=== PATIENT | male | born 1940 | race Caucasian/White ===

== ENCOUNTER 2017-04-22 14:17 | Inpatient (IN) | payer MEDICARE, OTHER ==
[~2017-04-22] VITALS: Ht 162.6 cm; Wt 59.0 kg
[~2017-04-22 14:17] MED LIST: ASPIR 8181 MG ORAL; COGENTIN1 MG ORAL; COLACE100 MG ORAL; DEPAKOTE ER250 MG ORAL; DULCOLAX10 MG RC; FERROUS SULFAT325 MG ORAL; FLEET ENEMA133 ML RECTAL; MILK OF MA400 MG/51 ORAL; MIRAPEX0.25 MG ORAL; MULTIVITAMINS1 EAC8 ORAL; MYLANTA30 M1 ORAL; NITROSTAT0.4 M1 SL; NORCO 5-325 TA1 EACH ORAL; OMEPRAZOLE20 M2 ORAL; PROTEINEX LIQU236 ML PO; SINEMET 25/1001 EA ORAL; TYLENOL EXTRA500 MG ORAL; TYLENOL325 MG ORAL
[2017-04-22] MEDS ORDERED: LEVAQUIN500 MG ORAL (14:24)
[2017-04-22] MEDS ORDERED: DIGOXIN125 MCG ORAL (14:32)
[2017-04-22 14:35] VITALS: BP 100/60
--- NOTE | 2017-04-22 14:40 | Emergency Room Report ---
History of Present Illness General Chief Complaint: General Complaint Source: Medical Record, EMS Present Illness HPI Patient presents emergency department today with acute GI bleeding. Patient has history anemia and has received blood physician the past. Patient's currently DO NOT RESUSCITATE. Patient has history of diabetes with right lower extremity DKA and left midfoot palpitations. Patient is unable to provide much history. [facility]. Patient primary care physician is Dr. Raad Sun. No other complaints are noted. Other than the weakness just bleeding patient's any of further evaluation. Symptoms noted to be severe per report. No other modifying factors. No other associated signs and symptoms. No other complaints were noted. Allergies: Coded Allergies: No Known Allergies (Unverified , 04/27/15) Patient History Past Medical History: HTN, other - anemia Past Surgical History: pacemaker Pertinent Family History: none Social History Narrative stays at a [facility] Reviewed Nursing Documentation: PMH: Agreed, PSxH: Agreed Nursing Documentation-PMH Hx Cardiac Problems: Yes - ANEMIA Hx Hypertension: Yes Hx Pacemaker: Yes Hx Asthma: No Hx Cancer: No Hx Cerebrovascular Accident: Yes Hx Parkinson's Disease: Yes Hx Speech Problem: Yes Hx Tremors: Yes Hx Weakness: Yes Review of Systems All Other Systems: limited - poor mental status Physical Exam Vital Signs Date Time Temp Pulse Resp B/P (MAP) Pulse Ox O2 Delivery O2 Flow Rate FiO2 04/22/17 14:09 97.4 70 16 100/60 98 Room Air 97.3 Sp02 EP Interpretation: reviewed, normal General Appearance: alert, moderate distress, cachetic, lethargic, thin Head: normocephalic, atraumatic Eyes: bilateral eye normal inspection ENT: normal ENT inspection, dry mucus membranes, other - pale Neck: normal inspection, supple, no bony tend Respiratory: normal inspection, lungs clear, normal breath sounds, no respiratory distress, no retraction Cardiovascular #1: regular rate, rhythm, no edema Gastrointestinal: soft, other - mild distention Rectal: blood streaked stool Genitourinary: other - normal male external genetilia Musculoskeletal: back normal, other - right BKA, left midfoot amputation Neurologic: alert, other - sleepy, weak, nonfocal Psychiatric: depressed affect Skin: no rash, other - pale Medical Decision Making Diagnostic Impression: Primary Impression: Anemia Additional Impression: Acute GI bleeding ER Course Patient presents emergency department today complaining of acute GI bleeding. Currently stays at a [facility]. And was noted have worsening weakness and GI bleeding. Physical exam shows evidence of GI bleeding. Laboratory workup shows anemia. Because of this acute GI bleeding a felt the patient require admission to the hospital. Case was discussed with patient's primary care physician Dr. Raad Sun. Patient will be admitted to telemetry for further treatment. Labs Test 04/22/17 15:00 04/22/17 15:48 04/22/17 15:50 White Blood Count 7.8 K/UL (4.8-10.8) Red Blood Count 4.66 M/UL (4.70-6.10) Hemoglobin 10.7 G/DL (14.2-18.0) Hematocrit 35.1 % (42.0-52.0) Mean Corpuscular Volume 75 FL (80-99) Mean Corpuscular Hemoglobin 23.0 PG (27.0-31.0) Mean Corpuscular Hemoglobin Concent 30.5 G/DL (32.0-36.0) Red Cell Distribution Width 29.4 % (11.6-14.8) Platelet Count 172 K/UL (150-450) Mean Platelet Volume 6.7 FL (6.5-10.1) Neutrophils (%) (Auto) 81.2 % (45.0-75.0) Lymphocytes (%) (Auto) 10.4 % (20.0-45.0) Monocytes (%) (Auto) 7.4 % (1.0-10.0) Eosinophils (%) (Auto) 0.4 % (0.0-3.0) Basophils (%) (Auto) 0.6 % (0.0-2.0) Sodium Level 137 MMOL/L (136-145) Potassium Level 4.4 MMOL/L (3.5-5.1) Chloride Level 102 MMOL/L (98-107) Carbon Dioxide Level 23 MMOL/L (21-32) Anion Gap 12 mmol/L (5-15) Blood Urea Nitrogen 17 mg/dL (7-18) Creatinine 1.1 MG/DL (0.55-1.30) Estimat Glomerular Filtration Rate mL/min (>60) Glucose Level 72 MG/DL (74-106) Calcium Level 8.2 MG/DL (8.5-10.1) Total Bilirubin 1.0 MG/DL (0.2-1.0) Aspartate Amino Transf (AST/SGOT) 290 U/L (15-37) Alanine Aminotransferase (ALT/SGPT) 19 U/L (12-78) Alkaline Phosphatase 597 U/L (46-116) Troponin I 0.000 ng/mL (0.000-0.056) Total Protein 6.5 G/DL (6.4-8.2) Albumin 1.9 G/DL (3.4-5.0) Globulin 4.6 g/dL Albumin/Globulin Ratio 0.4 (1.0-2.7) Lipase 41 U/L (73-393) Urine Color Darshana Urine Appearance Cloudy Urine pH 5 (4.5-8.0) Urine Specific [place] 1.025 (1.005-1.035) Urine Protein 2+ (NEGATIVE) Urine Glucose (UA) Negative (NEGATIVE) Urine Ketones 2+ (NEGATIVE) Urine Occult Blood 1+ (NEGATIVE) Urine Nitrite Negative (NEGATIVE) Urine Bilirubin 1+ (NEGATIVE) Urine Ictotest Positive Urine Urobilinogen 8 MG/DL (0.0-1.0) Urine Leukocyte Esterase 1+ (NEGATIVE) Urine RBC 0-2 /HPF (0 - 0) Urine WBC 2-4 /HPF (0 - 0) Urine Squamous Epithelial Cells Few /LPF (NONE/OCC) Urine Amorphous Sediment Many /LPF (NONE) Urine Bacteria Many /HPF (NONE) Prothrombin Time 14.0 SEC (9.30-11.50) Prothromb Time International Ratio 1.3 (0.9-1.1) Activated Partial Thromboplast Time 31 SEC (23-33) EKG Diagnostic Results Rate: normal Rhythm: NSR ST Segments: other - inverted t wave v1-v5 Rhythm Strip Diag. Results EP Interpretation: yes Rate: 70s Rhythm: NSR, no PVC's, no ectopy Last Vital Signs Date Time Temp Pulse Resp B/P (MAP) Pulse Ox O2 Delivery O2 Flow Rate FiO2 04/22/17 14:09 97.4 70 16 100/60 98 Room Air 97.3 Status: improved Disposition: ADMITTED INPATIENT Condition: Serious KEVIN DWYER M.D. Apr 22, 2017 14:40
[2017-04-22 15:21] LABS: BASOPHILS % (AUTO) 0.6 % (0.0-2.0); EOSINOPHILS % (AUTO) 0.4 % (0.0-3.0); HEMATOCRIT 35.1 % (42.0-52.0); HEMOGLOBIN 10.7 G/DL (14.2-18.0); LYMPHOCYTES % (AUTO) 10.4 % (20.0-45.0); MEAN CORPUSCULAR VOLUME 75 FL (80-99); MONOCYTES % (AUTO) 7.4 % (1.0-10.0); NEUTROPHILS % (AUTO) 81.2 % (45.0-75.0); PLATELET COUNT 172 K/UL (150-450); RED BLOOD COUNT 4.66 M/UL (4.70-6.10); RED CELL DISTRIBUTION WIDTH 29.4 % (11.6-14.8); WHITE BLOOD COUNT 7.8 K/UL (4.8-10.8)
--- NOTE | 2017-04-22 15:24 | Diagnostic Imaging Report ---
Indication: Cough Comparison: 07/02/2015 A single view chest radiograph was obtained. Findings: Right-sided pacemaker again noted. Heart size is normal. There is a calcified granuloma at the left lung base. Bones are osteopenic. IMPRESSION: No acute disease
[2017-04-22 15:32] LABS: ANION GAP 12 mmol/L (5-15); BLOOD UREA NITROGEN 17 mg/dL (7-18); CALCIUM 8.2 MG/DL (8.5-10.1); CARBON DIOXIDE 23 MMOL/L (21-32); CHLORIDE 102 MMOL/L (98-107); CREATININE 1.1 MG/DL (0.55-1.30); POTASSIUM 4.4 MMOL/L (3.5-5.1); SODIUM 137 MMOL/L (136-145)
[2017-04-22 15:43] LABS: ALANINE AMINOTRANSFERASE 19 U/L (12-78); ALBUMIN 1.9 G/DL (3.4-5.0); ALBUMIN/GLOBULIN RATIO 0.4 (1.0-2.7); ALKALINE PHOSPHATASE 597 U/L (46-116); ASPARTATE AMINO TRANSFERASE 290 U/L (15-37)
[2017-04-22 16:09] LABS: APPEARANCE,URINE CLOUDY; BILIRUBIN, URINE 1+ (NEGATIVE); GLUCOSE, URINE (UA) NEGATIVE (NEGATIVE); KETONES,URINE 2+ (NEGATIVE); LEUKOCYTE ESTERASE ,URINE 1+ (NEGATIVE); NITRITE,URINE NEGATIVE (NEGATIVE); PH,URINE 5 (4.5-8.0); PROTEIN,URINE 2+ (NEGATIVE); UROBILINOGEN,URINE 8 MG/DL (0.0-1.0)
[2017-04-22 16:13] LABS: COLOR,URINE AMBER
[2017-04-22 16:20] LABS: INR 1.3 (0.9-1.1)
[2017-04-22 16:42] VITALS: BP 99/59
[2017-04-22 17:25] VITALS: BP 98/65
[2017-04-22 20:00] VITALS: BP 118/71
[2017-04-22] MEDS ORDERED: Vitamin A&D Oint 2oz Tube TOPIC SCH (21:00)
[2017-04-22] MEDS: Miralax 17gm pkt ORAL SCH (21:44)
[2017-04-22] MEDS: Vitamin A&D Oint 2oz Tube TOPIC SCH (21:44)
[2017-04-22] MEDS ORDERED: Fleet's Enema 133ml RECTAL PRN (21:45)
[2017-04-22] MEDS ORDERED: Norco 5mg/325mg tab ORAL PRN (21:45)
[2017-04-22] MEDS: D5 1/2NS 1,000 ML IV SCH (22:18)
[2017-04-23 00:20] VITALS: BP 108/65
--- NOTE | 2017-04-23 00:30 | Consultation ---
DATE OF CONSULTATION: 04/22/2017 CONSULTING PHYSICIAN: Ton Tovar M.D. REFERRING PHYSICIAN: Raad Sun D.O. CHIEF COMPLAINT: Nausea, vomiting, and abdominal pain. HISTORY OF PRESENT ILLNESS: Most of the history as per chart. The patient is not able to give any history. This is a 77-year-old male with numerous medical problems, which I will dictate in a second, lives in a shelter, was admitted because the patient apparently had vomiting with GI bleeding. It is not very clear in the chart what kind of GI bleeding, but from talking to the nurses, apparently he had some coffee-ground emesis. PAST MEDICAL HISTORY: 1. Peripheral vascular disease with right BKA. 2. Gallstones. 3. Anemia. 4. Peripheral vascular disease. 5. Constipation. 6. Abnormal liver function tests. 7. Hypoalbuminemia. 8. Dementia. 9. Parkinson disease. 10. Diabetes. 11. Hypertension. 12. History of pacemaker placement. PAST SURGICAL HISTORY: 1. Right BKA. 2. Pacemaker placement. MEDICATIONS: Please see medication reconciliation list. ALLERGIES: No known drug allergies. SOCIAL HISTORY: Currently lives in a shelter. No recent history of tobacco, alcohol, or illicit drug abuse. FAMILY HISTORY: Noncontributory. REVIEW OF SYSTEMS: Unable to obtain. PHYSICAL EXAMINATION: GENERAL: Pale-looking male with no dentition. VITAL SIGNS: Temperature 98.1 degrees, pulse is 70, respirations 18, and blood pressure is 98/65. HEENT: Normocephalic. Mild pale conjunctivae. NECK: Supple. No lymphadenopathy. CARDIOVASCULAR: Regular rate and rhythm. Plus S1 and S2. LUNGS: Decreased breath sounds bilaterally and diffusely. ABDOMEN: Soft. There is a scar in the suprapubic area. Possibly, the patient had some prostate surgery in the past, but no rebound. No guarding. No peritoneal sign. EXTREMITIES: The patient had evidence of right BKA. No evidence of any edema on either leg. LABORATORY AND DIAGNOSTIC DATA: White count of 7.8, hemoglobin 10.7, and platelet count is 172,000. Chem-7, sodium 137, potassium 4.4, BUN is 17, and creatinine 1.1. Albumin is low at 1.9. ASSESSMENT AND PLAN: A 77-year-old male with possible gastrointestinal bleeding. Looking at the chart, his hemoglobin in last discharge, which was on 07/08/2015 was 11.3, now is 10.7. Our plan will be to start him on 1800 ADA GI soft diet, start him on Protonix daily, send stool for OB, repeat liver function tests given prior history of gallstones, repeat abdominal ultrasound to rule out acute cholecystitis, and send stool for occult blood. Consider doing GI procedures if needed. The patient at this time DNR. I want to thank Dr. Raad Sun for this kind referral. Ton Tovar M.D. DR: Elizabeth JOB#: [id number] CC: Raad Sun D.O.
[2017-04-23 04:41] VITALS: BP 122/80
[2017-04-23 07:25] LABS: BASOPHILS % (AUTO) 0.7 % (0.0-2.0); EOSINOPHILS % (AUTO) 0.6 % (0.0-3.0); HEMATOCRIT 34.7 % (42.0-52.0); LYMPHOCYTES % (AUTO) 9.3 % (20.0-45.0); MEAN CORPUSCULAR VOLUME 75 FL (80-99); MONOCYTES % (AUTO) 6.9 % (1.0-10.0); NEUTROPHILS % (AUTO) 82.5 % (45.0-75.0); PLATELET COUNT 128 K/UL (150-450); RED CELL DISTRIBUTION WIDTH 29.5 % (11.6-14.8); WHITE BLOOD COUNT 6.6 K/UL (4.8-10.8)
[2017-04-23 07:54] LABS: ALANINE AMINOTRANSFERASE 26 U/L (12-78); ALBUMIN 1.9 G/DL (3.4-5.0); ALBUMIN/GLOBULIN RATIO 0.4 (1.0-2.7); ALKALINE PHOSPHATASE 666 U/L (46-116); AMYLASE 22 U/L (25-115); ANION GAP 12 mmol/L (5-15); ASPARTATE AMINO TRANSFERASE 299 U/L (15-37); BILIRUBIN,TOTAL 1.2 MG/DL (0.2-1.0); BLOOD UREA NITROGEN 15 mg/dL (7-18); CALCIUM 8.2 MG/DL (8.5-10.1); CARBON DIOXIDE 23 MMOL/L (21-32); CHLORIDE 104 MMOL/L (98-107); CREATININE 0.9 MG/DL (0.55-1.30); PHOSPHORUS 2.5 MG/DL (2.5-4.9); POTASSIUM 3.8 MMOL/L (3.5-5.1); SODIUM 139 MMOL/L (136-145)
[2017-04-23 07:57] LABS: INR 1.4 (0.9-1.1)
[2017-04-23 07:59] LABS: BILIRUBIN,DIRECT 0.6 MG/DL (0.0-0.3)
[2017-04-23 08:00] VITALS: BP 110/69
[2017-04-23 08:02] LABS: % IRON SATURATION 33 % (15-50); IRON 45 ug/dL (50-175); TOTAL IRON BINDING CAPACITY 137 ug/dL (250-450)
[2017-04-23] MEDS: Aspirin EC 81mg tab ORAL SCH (09:00)
[2017-04-23] MEDS ORDERED: Docusate 100mg cap ORAL SCH (09:00)
[2017-04-23] MEDS: Vitamin A&D Oint 2oz Tube TOPIC SCH ×2 (09:26→20:29)
[2017-04-23] MEDS: Milk of Magnesia 30ml Ud ORAL SCH (09:28)
[2017-04-23] MEDS: Levodopa/Carbidopa 25/100 tab ORAL SCH ×3 (09:28→17:14)
[2017-04-23] MEDS: Multivitamin w/Minerals tab ORAL SCH (09:28)
[2017-04-23] MEDS: Docusate 100mg cap ORAL SCH ×2 (09:29→17:13)
[2017-04-23] MEDS: Depakote ER 250mg tab ORAL SCH ×2 (09:29→20:30)
--- NOTE | 2017-04-23 09:29 | General Progress Note ---
Assessment/Plan Problem List: (1) Elevated LFTs ICD Codes: R79.89 - Other specified abnormal findings of blood chemistry SNOMED: 745579565, 578897135 (2) Cholelithiasis ICD Codes: K80.20 - Calculus of gallbladder without cholecystitis without obstruction SNOMED: 540789180 (3) Anemia ICD Codes: D64.9 - Anemia, unspecified SNOMED: 409629416 (4) Constipation ICD Codes: K59.00 - Constipation, unspecified SNOMED: 73312005 (5) Parkinson disease ICD Codes: G20 - Parkinson's disease SNOMED: 86652599 (6) PVD (peripheral vascular disease) ICD Codes: I73.9 - Peripheral vascular disease, unspecified SNOMED: 418665382 Assessment/Plan fu abd us fu labs fu stool ob GI procedures on hold Subjective ROS Limited/Unobtainable: No Allergies: Coded Allergies: No Known Allergies (Unverified , 04/27/15) Objective Last 24 Hour Vital Signs Date Time Temp Pulse Resp B/P (MAP) Pulse Ox O2 Delivery O2 Flow Rate FiO2 04/23/17 08:00 97.7 70 19 110/69 100 97.7 04/23/17 04:41 96 Room Air 04/23/17 04:41 97.2 76 17 122/80 96 97.2 04/23/17 00:21 98 Room Air 04/23/17 00:20 97.5 70 17 108/65 98 97.5 04/22/17 20:00 98 Room Air 04/22/17 20:00 97.5 71 18 118/71 98 97.5 04/22/17 17:25 98.1 70 18 98/65 97 98.1 04/22/17 17:00 97.3 68 16 99/59 98 Room Air 97.3 04/22/17 16:42 97.3 68 16 99/59 98 Room Air 97.3 04/22/17 14:35 97.3 70 16 100/60 98 Room Air 97.3 04/22/17 14:09 97.4 70 16 100/60 98 Room Air 97.3 Intake and Output 04/22/17 04/23/17 19:00 07:00 Intake Total 480 ml Balance 480 ml Intake IV Total 480 ml # Voids 2 # Bowel Movements 1 Laboratory Tests 04/22/17 15:00: White Blood Count 7.8, Red Blood Count 4.66L, Hemoglobin 10.7L, Hematocrit 35.1L , Mean Corpuscular Volume 75L, Mean Corpuscular Hemoglobin 23.0L, Mean Corpuscular Hemoglobin Concent 30.5L, Red Cell Distribution Width 29.4H, Platelet Count 172, Mean Platelet Volume 6.7, Neutrophils (%) (Auto) 81.2H, Lymphocytes (%) (Auto) 10.4L, Monocytes (%) (Auto) 7.4, Eosinophils (%) (Auto) 0.4, Basophils (%) (Auto) 0.6, Sodium Level 137, Potassium Level 4.4, Chloride Level 102, Carbon Dioxide Level 23, Anion Gap 12, Blood Urea Nitrogen 17, Creatinine 1.1, Estimat Glomerular Filtration Rate , Glucose Level 72L, Calcium Level 8.2L, Total Bilirubin 1.0, Aspartate Amino Transf (AST/SGOT) 290H, Alanine Aminotransferase (ALT/SGPT) 19, Alkaline Phosphatase 597H, Troponin I 0.000, Total Protein 6.5, Albumin 1.9L, Globulin 4.6, Albumin/Globulin Ratio 0.4L, Lipase 41L 04/22/17 15:48: Urine Color Darshana, Urine Appearance Cloudy, Urine pH 5, Urine Specific [place] 1.025, Urine Protein 2+H, Urine Glucose (UA) Negative, Urine Ketones 2+H, Urine Occult Blood 1+H, Urine Nitrite Negative, Urine Bilirubin 1+H, Urine Ictotest Positive, Urine Urobilinogen 8H, Urine Leukocyte Esterase 1+H, Urine RBC 0-2H, Urine WBC 2-4, Urine Squamous Epithelial Cells Few, Urine Amorphous Sediment ManyH, Urine Bacteria ManyH 04/22/17 15:50: Prothrombin Time 14.0H, Prothromb Time International Ratio 1.3H, Activated Partial Thromboplast Time 31 04/23/17 04:00: Stool Occult Blood [Pending] 04/23/17 06:20: White Blood Count 6.6, Red Blood Count 4.60L, Hemoglobin 11.0L, Hematocrit 34.7L , Mean Corpuscular Volume 75L, Mean Corpuscular Hemoglobin 24.0L, Mean Corpuscular Hemoglobin Concent 31.8L, Red Cell Distribution Width 29.5H, Platelet Count 128L, Mean Platelet Volume 6.7, Neutrophils (%) (Auto) 82.5H, Lymphocytes (%) (Auto) 9.3L, Monocytes (%) (Auto) 6.9, Eosinophils (%) (Auto) 0.6, Basophils (%) (Auto) 0.7, Prothrombin Time 14.4H, Prothromb Time International Ratio 1.4H, Sodium Level 139, Potassium Level 3.8, Chloride Level 104, Carbon Dioxide Level 23, Anion Gap 12, Blood Urea Nitrogen 15, Creatinine 0.9, Estimat Glomerular Filtration Rate , Glucose Level 93, Calcium Level 8.2L, Phosphorus Level 2.5, Iron Level 45L, Total Iron Binding Capacity 137L, Percent Iron Saturation 33, Unsaturated Iron Binding 92L, Total Bilirubin 1.2H, Direct Bilirubin 0.6H, Aspartate Amino Transf (AST/SGOT) 299H, Alanine Aminotransferase (ALT/SGPT) 26, Alkaline Phosphatase 666H, Total Protein 6.4, Albumin 1.9L, Globulin 4.5, Albumin/Globulin Ratio 0.4L, Amylase Level 22L, Lipase 55L Height (Feet): 5 Height (Inches): 4.00 Weight (Pounds): 130 General Appearance: confused EENT: normal ENT inspection Neck: supple Cardiovascular: normal rate Respiratory/Chest: lungs clear Abdomen: normal bowel sounds, non tender, soft Extremities: non-tender DEVIN FISCHER Apr 23, 2017 09:29
[2017-04-23] MEDS: Digoxin 0.125mg tab ORAL SCH (09:30)
[2017-04-23] MEDS: Pramipexole 0.5mg tab ORAL SCH ×2 (10:14→17:14)
[2017-04-23 11:46] VITALS: BP 128/76
[2017-04-23] MEDS: cefTRIAXone 2 GM in NS 55 ML IVPB SCH (12:24)
[2017-04-23] MEDS: D5 1/2NS 1,000 ML IV SCH (12:28)
[2017-04-23] MEDS ORDERED: LORazepam 0.5mg tab ORAL PRN (13:30)
[2017-04-23 15:49] VITALS: BP 103/62
[2017-04-23 20:00] VITALS: BP 107/72
[2017-04-23] MEDS: Heparin 5000 units/ml inj SUBQ SCH (20:29)
[2017-04-23] MEDS: Miralax 17gm pkt ORAL SCH (20:30)
--- NOTE | 2017-04-23 21:15 | History and Physical Report ---
DATE OF ADMISSION: 04/22/2017 TIME: 9:00 a.m. CONSULTANTS: 1. Ton Tovar M.D. 2. Angel Gilliam M.D. 3. Tia Lambert M.D. CHIEF COMPLAINT: Altered mental status, gastrointestinal bleed. BRIEF HISTORY: This is a 77-year-old male from [facility], presented with above-mentioned diagnosis, admitted to medical floor for further treatment. Currently, lethargic in bed and nonverbal. REVIEW OF SYSTEMS: Unavailable. PAST MEDICAL HISTORY: Through chart include Parkinson, anemia, PVD. PAST SURGICAL HISTORY: Unknown. MEDICATIONS: Include Protonix, Ecotrin, Lanoxin, Depakote, Colace, Feosol, carbidopa, milk of magnesia, Mirapex, Mylanta, Tylenol, hydrocodone, Fleets Enema. ALLERGIES: Denies. SOCIAL HISTORY: Unable to obtain secondary to the patient nonverbal. PHYSICAL EXAMINATION: VITAL SIGNS: Show temperature is 97 degrees, pulse 97, respirations 19, blood pressure 110/69. CARDIOVASCULAR: No murmur. LUNGS: Poor air exchange. ABDOMEN: Bowel sounds distant. EXTREMITIES: No cyanosis, clubbing, or edema. NEUROLOGIC: The patient is flaccid in bed, refusing to follow directions. LABORATORY DATA: Hemoglobin 11, platelets 128, otherwise CBC is normal. BMP show calcium 8.2, AST 299, alkaline phosphatase , albumin 1.9, otherwise normal. INR is 1.4, PTT is 31. Urinalysis showed 1+ leukocyte esterase, 2+ protein. ASSESSMENT: 1. Urinary tract infection. 2. Gastrointestinal bleed. 3. Altered mental status. 4. . 5. Anemia. 6. Parkinson. 7. Peripheral vascular disease. PLAN: 1. Continue premeds. 2. OT, PT, and dietary evaluation. 3. Antibiotic per Infectious Disease. 4. CBC and BMP in the morning. 5. Dr. Guy Gilliam, Dr. Lambert, and Dr. Gonzalez to consult. We will continue to follow up with the patient. Raad Sun D.O. DR: Gordy JOB#: [id number] CC:
--- NOTE | 2017-04-23 23:37 | Consultation ---
Consult Note Consult Note [id number] KAT GLYNN M.D. Apr 23, 2017 23:37
[2017-04-24] VITALS: BP 119/75
[2017-04-24 04:00] VITALS: BP 145/66
--- NOTE | 2017-04-24 04:45 | Consultation ---
DATE OF CONSULTATION: 04/24/2017 INFECTIOUS DISEASE CONSULTATION CONSULTING PHYSICIAN: Juanito Gonzalez M.D. REFERRING PHYSICIAN: Raad Sun D.O. REASON FOR CONSULTATION: Evaluation of the patient for intraabdominal sepsis/colitis. HISTORY OF PRESENT ILLNESS: The patient is a 77-year-old male with multiple medical problems as listed below, who was admitted to this medical center for lower gastrointestinal bleed. Infectious Disease consultation has been requested for further evaluation of the patient's antibiotic management. PAST MEDICAL HISTORY: Significant for: 1. Anemia. 2. Parkinson disease. 3. Peripheral vascular disease. ALLERGIES: No known drug allergies. SOCIAL HISTORY: The patient lives in a correction. FAMILY HISTORY: Unavailable. REVIEW OF SYSTEMS: Unobtainable. MEDICATIONS: Rocephin and Flagyl. PHYSICAL EXAMINATION: VITAL SIGNS: Temperature 97.1, pulse 69, respiratory rate 18, and blood pressure 107/79. HEENT: No pale conjunctivae. No icterus. NECK: No lymphadenopathy. CHEST: Clear. HEART: S1, S2. ABDOMEN: Soft. EXTREMITIES: No cyanosis at this time. LABORATORY AND DIAGNOSTIC DATA: White blood cells 6, hemoglobin 11, and platelets 128. UA unremarkable. BUN 15, creatinine 0.3. AST 299, ALT 23, and alkaline phosphatase is 660. Urine culture is pending. Chest x-ray, no acute disease. ASSESSMENT: The patient is a 77-year-old male with: 1. Transaminitis. 2. Elevated alkaline phosphatase, rule out biliary disease. 3. Lower gastrointestinal bleed. 4. Afebrile. 5. Normal white blood cells. PLAN: 1. We will continue the patient on Rocephin and Flagyl. 2. Monitor CBC. 3. Monitor BMP. 4. Monitor cultures (blood and urine). 5. Ultrasound of the abdomen for evaluation of biliary disease, rule out cholecystitis. 6. Based on the patient's clinical course and labs, we will do further recommendations. Thank you, Dr. Ashvin Sun, for allowing me to participate in the care of this patient. I will follow the patient with you during this hospitalization. Juanito Gonzalez M.D. DR: XANDER JOB#: [id number] CC:
--- NOTE | 2017-04-24 04:45 | Consultation ---
DATE OF CONSULTATION: 04/23/2017 NOTE: POOR AUDIO HISTORY OF PRESENT ILLNESS: This is a male patient who was admitted to [facility]. Reason for this patient's admission is because the patient has gastrointestinal bleeding, but he also has abdominal pain and acute GI bleeding, cholelithiasis, anemia, heart disease, and peripheral vascular disease. This patient has been having mood lability and altered level of consciousness. Cognition has declined below baseline, secondary to stress of his medical illness. So, for that reason, there was a daily psychiatric consultation requested to prevent any further decline in the patient's cognition and so he was seen and assessed at bedside. I saw and assessed the patient at bedside. He is confused and disorganized. He does have altered mental status, some slight agitation, and irritability. PAST MEDICAL HISTORY: He has anemia, peripheral vascular disease, hypoalbuminemia, Parkinson's, diabetes, hypertension, and status post pacemaker placement. ALLERGIES: No known drug allergies. PSYCHOTROPIC MEDICATIONS: The patient is on Depakote 250 mg twice a day as a mood stabilizer. FAMILY PSYCHIATRIC HISTORY: Denies . SOCIAL HISTORY: This patient is currently living in [facility]. He is financially supported by [employer] and Medicare. SUBSTANCE ABUSE HISTORY: Denies drug and alcohol use. PSYCHIATRIC HISTORY: Major depression with psychotic features, rule out pseudodementia and unclear if there is any previous psychiatric admission. The patient is a poor historian. MENTAL STATUS EXAMINATION: His appearance is disheveled. Irritable and agitated. Affect guarded and restricted. Intellect poor. Mood depressed and anxious. Motor activity, psychomotor agitation. Attention span is poor. Orientation x2. Speech is pressured. Thought process, disorganized and illogical. Thought content, no auditory hallucinations or paranoid delusions. Insight and judgment is poor. Memory, he was able to recall one out of three word recall after five minute delay, with poor memory. DIAGNOSIS: Major depression with psychotic features, rule out pseudodementia. Medical, please see Internal Medicine note. Psychosocial stressors, financial . PLAN: Plan for this 3, continue him on Depakote 250 mg twice a day as a mood stabilizer, but I am also going to Ativan 0.5 mg every six hours p.r.n. anxiety and agitation and I am also going to add Namenda 5 mg twice a day to prevent any further decline in his cognition and he will continue to be followed by Psychiatry daily throughout his hospital course per request of his attending physician. Chart reviewed and discussed with staff. The patient is seen and assessed at bedside. I am also going to order Psychology consult for this patient to see for Psychology consultation. Chart was reviewed and discussed with staff. Seen and assessed at bedside. I would like to thank, Dr. Raad Sun, for this interesting consultation. Tia Lambert M.D. DR: Boyd JOB#: [id number] CC:
[2017-04-24] MEDS: D5 1/2NS 1,000 ML IV SCH ×2 (05:12→23:51)
[2017-04-24 08:00] VITALS: BP 102/66
[2017-04-24] MEDS: Levodopa/Carbidopa 25/100 tab ORAL SCH ×3 (08:31→16:47)
[2017-04-24] MEDS: Depakote ER 250mg tab ORAL SCH ×2 (08:31→21:31)
[2017-04-24] MEDS: Docusate 100mg cap ORAL SCH ×2 (08:31→16:47)
[2017-04-24] MEDS: Pramipexole 0.5mg tab ORAL SCH ×2 (08:32→16:47)
[2017-04-24] MEDS: Vitamin A&D Oint 2oz Tube TOPIC SCH ×2 (08:32→21:31)
[2017-04-24] MEDS: Milk of Magnesia 30ml Ud ORAL SCH (08:32)
[2017-04-24] MEDS: Multivitamin w/Minerals tab ORAL SCH (08:32)
[2017-04-24] MEDS: Heparin 5000 units/ml inj SUBQ SCH (08:32)
[2017-04-24] MEDS: Aspirin EC 81mg tab ORAL SCH (08:33)
[2017-04-24] MEDS: Digoxin 0.125mg tab ORAL SCH (08:36)
--- NOTE | 2017-04-24 08:59 | General Progress Note ---
Assessment/Plan Problem List: (1) UTI (urinary tract infection) ICD Codes: N39.0 - Urinary tract infection, site not specified SNOMED: 83027530 (2) Hypoalbuminemia ICD Codes: E88.09 - Other disorders of plasma-protein metabolism, not elsewhere classified SNOMED: 853568071 (3) Acute GI bleeding ICD Codes: K92.2 - Gastrointestinal hemorrhage, unspecified SNOMED: 28515049 (4) Anemia ICD Codes: D64.9 - Anemia, unspecified SNOMED: 728172898 (5) Parkinson disease ICD Codes: G20 - Parkinson's disease SNOMED: 47705425 (6) PVD (peripheral vascular disease) ICD Codes: I73.9 - Peripheral vascular disease, unspecified SNOMED: 495374503 Status: unchanged Assessment/Plan ot pt diet abx cbc bmp am Subjective Constitutional: Reports: weakness Allergies: Coded Allergies: No Known Allergies (Unverified , 04/27/15) All Systems: reviewed and negative except above Subjective sleepy calm in bed Objective Last 24 Hour Vital Signs Date Time Temp Pulse Resp B/P (MAP) Pulse Ox O2 Delivery O2 Flow Rate FiO2 04/24/17 08:36 70 04/24/17 08:00 96.6 70 18 102/66 100 96.6 04/24/17 04:00 96.4 69 18 145/66 96.4 04/24/17 00:00 96.7 71 16 119/75 100 96.7 04/23/17 20:00 97.5 69 20 107/72 97 97.5 04/23/17 15:49 98.5 71 20 103/62 99 98.5 04/23/17 11:46 97.4 71 19 128/76 99 97.4 04/23/17 09:30 70 Intake and Output 04/23/17 04/24/17 19:00 07:00 Intake Total 695 ml 920 ml Output Total 300 ml 550 ml Balance 395 ml 370 ml Intake IV Total 695 ml 920 ml Output Urine Total 300 ml 550 ml # Voids 1 Height (Feet): 5 Height (Inches): 4.00 Weight (Pounds): 130 General Appearance: lethargic EENT: normal ENT inspection Neck: normal alignment Cardiovascular: normal peripheral pulses, normal rate, regular rhythm Respiratory/Chest: chest wall non-tender, lungs clear, normal breath sounds Abdomen: normal bowel sounds, non tender, soft Extremities: normal inspection Edema: no edema noted Arm (L), no edema noted Arm (R), no edema noted Leg (L), no edema noted Leg (R), no edema noted Pedal (L), no edema noted Pedal (R), no edema noted Generalized Neurologic: motor weakness Skin: normal pigmentation, warm/dry WILLA CHILDRESS Apr 24, 2017 08:59
--- NOTE | 2017-04-24 09:07 | General Progress Note ---
Assessment/Plan Problem List: (1) Elevated LFTs ICD Codes: R79.89 - Other specified abnormal findings of blood chemistry SNOMED: 413369656, 554855381 (2) Cholelithiasis ICD Codes: K80.20 - Calculus of gallbladder without cholecystitis without obstruction SNOMED: 353523615 (3) Anemia ICD Codes: D64.9 - Anemia, unspecified SNOMED: 604795313 (4) Constipation ICD Codes: K59.00 - Constipation, unspecified SNOMED: 81108144 (5) Parkinson disease ICD Codes: G20 - Parkinson's disease SNOMED: 67160081 (6) PVD (peripheral vascular disease) ICD Codes: I73.9 - Peripheral vascular disease, unspecified SNOMED: 235999538 Assessment/Plan fu abd us fu labs fu stool ob>>.positive fu tumor markers plan EGD and colonoscopy tomorrow with 2 MD consult Subjective ROS Limited/Unobtainable: No Allergies: Coded Allergies: No Known Allergies (Unverified , 04/27/15) Subjective rectal bleed Objective Last 24 Hour Vital Signs Date Time Temp Pulse Resp B/P (MAP) Pulse Ox O2 Delivery O2 Flow Rate FiO2 04/24/17 08:36 70 04/24/17 08:00 96.6 70 18 102/66 100 96.6 04/24/17 04:00 96.4 69 18 145/66 96.4 04/24/17 00:00 96.7 71 16 119/75 100 96.7 04/23/17 20:00 97.5 69 20 107/72 97 97.5 04/23/17 15:49 98.5 71 20 103/62 99 98.5 04/23/17 11:46 97.4 71 19 128/76 99 97.4 04/23/17 09:30 70 Intake and Output 04/23/17 04/24/17 19:00 07:00 Intake Total 695 ml 920 ml Output Total 300 ml 550 ml Balance 395 ml 370 ml Intake IV Total 695 ml 920 ml Output Urine Total 300 ml 550 ml # Voids 1 Height (Feet): 5 Height (Inches): 4.00 Weight (Pounds): 130 General Appearance: lethargic EENT: pale conjunctivae Neck: non-tender Cardiovascular: normal rate Respiratory/Chest: decreased breath sounds Abdomen: normal bowel sounds, non tender, soft Extremities: non-tender DEVIN FISCHER Apr 24, 2017 09:07
[2017-04-24 10:30] LABS: BASOPHILS % (AUTO) 0.6 % (0.0-2.0); EOSINOPHILS % (AUTO) 0.8 % (0.0-3.0); HEMATOCRIT 37.4 % (42.0-52.0); HEMOGLOBIN 11.4 G/DL (14.2-18.0); LYMPHOCYTES % (AUTO) 13.1 % (20.0-45.0); MEAN CORPUSCULAR VOLUME 77 FL (80-99); MONOCYTES % (AUTO) 6.9 % (1.0-10.0); NEUTROPHILS % (AUTO) 78.6 % (45.0-75.0); PLATELET COUNT 120 K/UL (150-450); RED BLOOD COUNT 4.87 M/UL (4.70-6.10); RED CELL DISTRIBUTION WIDTH 29.5 % (11.6-14.8); WHITE BLOOD COUNT 7.4 K/UL (4.8-10.8)
[2017-04-24 10:50] LABS: ALANINE AMINOTRANSFERASE 26 U/L (12-78); ALBUMIN 1.8 G/DL (3.4-5.0); ALBUMIN/GLOBULIN RATIO 0.4 (1.0-2.7); ALKALINE PHOSPHATASE 679 U/L (46-116); ANION GAP 7 mmol/L (5-15); ASPARTATE AMINO TRANSFERASE 288 U/L (15-37); BILIRUBIN,TOTAL 0.9 MG/DL (0.2-1.0); BLOOD UREA NITROGEN 13 mg/dL (7-18); CALCIUM 8.2 MG/DL (8.5-10.1); CARBON DIOXIDE 27 MMOL/L (21-32); CHLORIDE 105 MMOL/L (98-107); CREATININE 0.9 MG/DL (0.55-1.30); POTASSIUM 4.2 MMOL/L (3.5-5.1); SODIUM 139 MMOL/L (136-145)
[2017-04-24] MEDS: cefTRIAXone 2 GM in NS 55 ML IVPB SCH (11:16)
[2017-04-24 12:00] VITALS: BP 122/66
--- NOTE | 2017-04-24 12:27 | Wound Care Consultation ---
Wound Assessment Wound Assessment #1: Wound Number: 1 Wound Present on Admission: Yes New Wound: No Status Change of Wound: No Wound Location Body Site Modif: mid Wound Location Body Site: thoracic spine Wound Type: pressure ulcer Eitan Test: Does not Eitan Pressure Ulcer Stage: Unstageable Wound Thickness: Full Thickness Wound Length: 8.0 Wound Width: 4.5 Wound Depth: utd Percent of Wound Bed Yellow/Wh: 20 Percent of Wound Purple/Maroon: 80 Wound Drainage Description: Serosanguineous Wound Drainage Amount: Moderate Wound Drainage Odor: None/Absent Tissue Surrounding Wound: Macerated Wound General Appearance: Reddened - maroon,yellow, Draining Wound Assessment #2: Wound Number: 2 Wound Present on Admission: Yes New Wound: No Status Change of Wound: No Wound Location Body Site Modif: left, lateral Wound Location Body Site: knee Wound Type: pressure ulcer Eitan Test: Does not Eitan Pressure Ulcer Stage: Unstageable Wound Thickness: Full Thickness Wound Length: 1.5 Wound Width: 1.5 Wound Depth: utd Percent of Wound [place]/Red: 40 Percent of Wound Bed Yellow/Wh: 60 Wound Drainage Description: Serosanguineous Wound Drainage Amount: Scant Wound Drainage Odor: None/Absent Tissue Surrounding Wound: Erythemic Wound General Appearance: Reddened - yellow, Draining Wound Assessment #3: Wound Number: 3 Wound Present on Admission: Yes New Wound: No Status Change of Wound: No Wound Location Body Site Modif: mid Wound Location Body Site: other - Sacrococcygeal extending to perianal area full thickness scar tissue Wound Type: pressure ulcer Eitan Test: Does not Eitan Wound Thickness: Full Thickness - scar tissue Wound Length: 8.0 Wound Width: 6.0 Wound Depth: utd Percent of Wound [place]/Red: 100 Wound Drainage Amount: None Wound Drainage Odor: None/Absent Tissue Surrounding Wound: Intact Wound General Appearance: Reddened Wound Assessment #4: Wound Number: 4 Wound Present on Admission: Yes New Wound: No Status Change of Wound: No Wound Location Body Site Modif: left Wound Location Body Site: ischial tuberosity Wound Type: pressure ulcer Eitan Test: Does not Eitan Wound Thickness: Full Thickness - scar tissue Wound Length: 2.5 Wound Width: 2.5 Wound Depth: utd Percent of Wound [place]/Red: 100 Wound Drainage Amount: None Wound Drainage Odor: None/Absent Tissue Surrounding Wound: Intact Wound General Appearance: Reddened Wound Comment #1 Thoracic mid spine unstageable pressure ulcer #2 Left lateral knee unstageable pressure ulcer #3 Left ischial tuberosity full thickness scar tissue. #4 Sacrococcygeal extending to perianal area full thickness scar tissue Recommendation -Local wound care per protocol -Keep clean and dry -Turn and reposition -Offload both heels -Heel protector on both heels -Optimize nutrition -Low air loss mattress -Assess and f/u accordingly for any changes AFSANEH SCANLON RN Apr 24, 2017 12:27
--- NOTE | 2017-04-24 12:31 | Infectious Diseases Prog Note ---
Assessment/Plan Assessment/Plan ASSESSMENT: The patient is a 77-year-old male with: Transaminitis / Elevated alkaline phosphatase rule out biliary disease Afebrile. Normal white blood cells RO colitis lower gastrointestinal bleed. Anemia. Parkinson disease. Peripheral vascular disease. PLAN: continue the patient on Rocephin and Flagyl d# 2 Monitor CBC. Monitor BMP. Monitor cultures (blood and urine). Ultrasound of the abdomen for evaluation of biliary disease, rule out cholecystitis Hep pane; plan EGD and colonoscopy tomorrow Subjective Allergies: Coded Allergies: No Known Allergies (Unverified , 04/27/15) Subjective afebrile Objective Vital Signs Last 24 Hour Vital Signs Date Time Temp Pulse Resp B/P (MAP) Pulse Ox O2 Delivery O2 Flow Rate FiO2 04/24/17 08:36 70 04/24/17 08:00 96.6 70 18 102/66 100 96.6 04/24/17 04:00 96.4 69 18 145/66 96.4 04/24/17 00:00 96.7 71 16 119/75 100 96.7 04/23/17 20:00 97.5 69 20 107/72 97 97.5 04/23/17 15:49 98.5 71 20 103/62 99 98.5 Height (Feet): 5 Height (Inches): 4.00 Weight (Pounds): 130 HEENT: anicteric Respiratory/Chest: no respiratory distress Cardiovascular: normal rate Abdomen: soft, non tender Microbiology Date/Time Source Procedure Growth Status 04/22/17 15:48 Urine,Clean Catch Urine Culture - Preliminary NO GROWTH AFTER 24 HOURS Resulted 04/22/17 17:00 Rectum VRE Culture - Final NO VANCOMYCIN RESISTANT ENTEROCOCCUS ... Complete Laboratory Tests Test 04/24/17 10:15 White Blood Count 7.4 K/UL (4.8-10.8) Red Blood Count 4.87 M/UL (4.70-6.10) Hemoglobin 11.4 G/DL (14.2-18.0) L Hematocrit 37.4 % (42.0-52.0) L Mean Corpuscular Volume 77 FL (80-99) L Mean Corpuscular Hemoglobin 23.4 PG (27.0-31.0) L Mean Corpuscular Hemoglobin Concent 30.4 G/DL (32.0-36.0) L Red Cell Distribution Width 29.5 % (11.6-14.8) H Platelet Count 120 K/UL (150-450) L Mean Platelet Volume 6.7 FL (6.5-10.1) Neutrophils (%) (Auto) 78.6 % (45.0-75.0) H Lymphocytes (%) (Auto) 13.1 % (20.0-45.0) L Monocytes (%) (Auto) 6.9 % (1.0-10.0) Eosinophils (%) (Auto) 0.8 % (0.0-3.0) Basophils (%) (Auto) 0.6 % (0.0-2.0) Sodium Level 139 MMOL/L (136-145) Potassium Level 4.2 MMOL/L (3.5-5.1) Chloride Level 105 MMOL/L (98-107) Carbon Dioxide Level 27 MMOL/L (21-32) Anion Gap 7 mmol/L (5-15) Blood Urea Nitrogen 13 mg/dL (7-18) Creatinine 0.9 MG/DL (0.55-1.30) Estimat Glomerular Filtration Rate mL/min (>60) Glucose Level 91 MG/DL (74-106) Calcium Level 8.2 MG/DL (8.5-10.1) L Total Bilirubin 0.9 MG/DL (0.2-1.0) Aspartate Amino Transf (AST/SGOT) 288 U/L (15-37) H Alanine Aminotransferase (ALT/SGPT) 26 U/L (12-78) Alkaline Phosphatase 679 U/L (46-116) H Total Protein 6.3 G/DL (6.4-8.2) L Albumin 1.8 G/DL (3.4-5.0) L Globulin 4.5 g/dL Albumin/Globulin Ratio 0.4 (1.0-2.7) L Current Medications Medications (Trade) Dose Ordered Sig/Judson Route PRN Reason Start Time Stop Time Status Last Admin Dose Admin Acetaminophen (Tylenol) 325 mg Q6H PRN ORAL for mild pain 04/22/17 21:45 05/22/17 21:44 Acetaminophen/ Hydrocodone Bitart ([place] 5/325) 1 tab Q6H PRN ORAL for moderate pain 04/22/17 21:45 04/29/17 21:44 Al Hydroxide/Mg Hydroxide (Mylanta) 30 ml PRN ORAL 04/22/17 22:45 05/22/17 22:44 Carbidopa/Levodopa (Sinemet 25/100) 1 tab THREE TIMES A DAY ORAL 04/23/17 09:00 05/23/17 08:59 04/24/17 08:31 Ceftriaxone Sodium 2 gm/ Sodium Chloride 55 ml @ 110 mls/hr Q24H IVPB 04/23/17 11:00 04/30/17 10:59 04/24/17 11:16 Dextrose/Sodium Chloride 1,000 ml @ 60 mls/hr [id number] IV 04/22/17 21:45 05/22/17 21:44 04/24/17 05:12 Digoxin (Lanoxin) 0.125 mg DAILY ORAL 04/23/17 09:00 05/23/17 08:59 04/24/17 08:36 Divalproex Sodium (Depakote ER) 250 mg EVERY 12 HOURS ORAL 04/23/17 09:00 05/23/17 08:59 04/24/17 08:31 Docusate Sodium (Colace) 100 mg TWICE A DAY ORAL 04/23/17 09:00 05/23/17 08:59 04/24/17 08:31 Lorazepam (Ativan) 0.5 mg Q6H PRN ORAL For Anxiety 04/23/17 13:30 04/30/17 13:29 Magnesium Hydroxide (Mom) 30 ml DAILY ORAL 04/23/17 09:00 05/23/17 08:59 04/24/17 08:32 Metronidazole 100 ml @ 100 mls/hr Q8HR IVPB 04/23/17 14:00 04/30/17 13:59 04/24/17 05:12 Multivitamins Therapeutic (Therapeutic Multivitamin) 1 ea DAILY ORAL 04/23/17 09:00 05/23/17 08:59 04/24/17 08:32 Pantoprazole (Protonix) 40 mg DAILY ORAL 04/23/17 09:00 05/23/17 08:59 04/24/17 08:34 Polyethylene Glycol (Miralax) 17 gm BEDTIME ORAL 04/22/17 21:00 05/22/17 20:59 04/23/17 20:30 Polyethylene Glycol/ Electrolytes (Nulytely) 4,000 ml ONCE ONCE ORAL 04/24/17 16:00 04/24/17 16:01 Pramipexole (Mirapex) 0.25 mg TWICE A DAY ORAL 04/23/17 09:00 05/23/17 08:59 04/24/17 08:32 Sodium Phosphate (Fleet's Sodium Phosl Enema) 133 ml DAILY PRN RECTAL Constipation 04/22/17 21:45 05/22/17 21:44 Vitamin A/Vitamin D (A & D Oint) 1 applic EVERY 12 HOURS TOPIC 04/22/17 21:00 05/22/17 20:59 04/24/17 08:32 KAT GLYNN M.D. Apr 24, 2017 12:31
--- NOTE | 2017-04-24 12:48 | Diagnostic Imaging Report ---
Indication:Abdominal pain Technique: Grayscale and duplex Doppler imaging of the abdomen performed. Comparison: None Findings: The liver appears abnormal with heterogeneous echotexture. Infiltrative disease such as metastatic neoplasm is not excluded. Evaluation with contrasted CT is recommended. There is ascites present. Gallstone noted. Sonographic Sarmiento's is negative per technologist. The liver is enlarged measuring 20 cm. CBD is 5 mm. Pancreas is poorly seen. The aorta is also not seen well. There is no obvious hydronephrosis. The kidneys may be somewhat echogenic. Main portal vein is patent by Doppler examination. The spleen is not demonstrated. IMPRESSION: Hepatomegaly with suggestion of infiltrative disease based on markedly heterogeneous and nodular appearance. Further evaluation with contrasted CT is recommended. Possible medical renal disease Ascites Gallstones Nondemonstration of the spleen
[2017-04-24 15:52] VITALS: BP 114/66
[2017-04-24] MEDS ORDERED: Nulytely 4L ORAL ONE (16:00)
[2017-04-24 20:00] VITALS: BP 114/76
[2017-04-24] MEDS: Miralax 17gm pkt ORAL SCH (21:31)
--- NOTE | 2017-04-24 22:00 | Progress Note ---
DATE: 04/24/2017 HISTORY OF PRESENT ILLNESS: This is a 77-year-old male patient with gastrointestinal bleeding but because of his depression from his medical illness, cognition is declining below baseline, that is why he does require daily psychiatric consultation. This patient has gastrointestinal bleeding, cholelithiasis, anemia, heart disease, peripheral vascular disease, but he also has mood lability and agitation, confusion, and disorganized thought process which is why he does require daily psychiatric consultation. MENTAL STATUS EXAMINATION: This is a male patient, 77-year-old with psychomotor agitation. Mood is irritable and agitated. Affect guarded and restricted. Thought process, disorganized and illogical. Endorses suicidal ideations, intent to overdose on medications. Insight and judgment is poor. DIAGNOSIS: Major depressive disorder, severe recurrent with psychotic features, rule out pseudodementia. PLAN: For this patient is, I am going to continue to stabilize his mood with a psychotropic medication regimen consisting of Depakote 250 mg q.12 hours. Encouraged him to interact appropriately with staff and other patients. Chart reviewed and discussed with staff. Seen and assessed at bedside. He will continue to be followed by Psychiatry throughout hospital course. Supportive therapy of 15 to 20 minutes provided. Tia Lambert M.D. DR: Isidoro JOB#: [id number] CC:
[2017-04-25] VITALS (9 sets, daily range): BP systolic 90–141; BP diastolic 54–84
[2017-04-25 08:07] LABS: HEMATOCRIT 36.6 % (42.0-52.0); HEMOGLOBIN 11.7 G/DL (14.2-18.0); MEAN CORPUSCULAR VOLUME 77 FL (80-99); PLATELET COUNT 122 K/UL (150-450); RED BLOOD COUNT 4.77 M/UL (4.70-6.10); RED CELL DISTRIBUTION WIDTH 29.6 % (11.6-14.8); WHITE BLOOD COUNT 7.8 K/UL (4.8-10.8)
[2017-04-25 08:08] LABS: INR 1.4 (0.9-1.1)
[2017-04-25 08:38] LABS: ALANINE AMINOTRANSFERASE 24 U/L (12-78); ALBUMIN 1.7 G/DL (3.4-5.0); ALBUMIN/GLOBULIN RATIO 0.4 (1.0-2.7); ALKALINE PHOSPHATASE 754 U/L (46-116); ANION GAP 12 mmol/L (5-15); ASPARTATE AMINO TRANSFERASE 298 U/L (15-37); BILIRUBIN,TOTAL 1.3 MG/DL (0.2-1.0); BLOOD UREA NITROGEN 14 mg/dL (7-18); CARBON DIOXIDE 23 MMOL/L (21-32); CHLORIDE 105 MMOL/L (98-107); CREATININE 0.9 MG/DL (0.55-1.30); POTASSIUM 3.7 MMOL/L (3.5-5.1); SODIUM 140 MMOL/L (136-145)
[2017-04-25 08:41] LABS: BILIRUBIN,DIRECT 0.8 MG/DL (0.0-0.3)
--- NOTE | 2017-04-25 08:46 | Diagnostic Imaging Report ---
Indication: Status post nasogastric tube placement Technique: Supine view of the upper abdomen Comparison: 07/02/2015 Findings: Interim placement of a nasogastric tube, tip of which projects at the level of the gastric fundus, proximal port just beyond the gastroesophageal junction. The bowel gas pattern is unremarkable. Calcification projects in the right upper quadrant, possibly a hepatic granuloma. Pacemaker is incidentally noted Impression: Satisfactory nasogastric tube placement Other findings as noted
--- NOTE | 2017-04-25 09:30 | GI Progress Note ---
Assessment/Plan Problems: (1) Elevated LFTs ICD Codes: R79.89 - Other specified abnormal findings of blood chemistry SNOMED: 827527654, 759153136 (2) Cholelithiasis ICD Codes: K80.20 - Calculus of gallbladder without cholecystitis without obstruction SNOMED: 435614818 (3) Anemia ICD Codes: D64.9 - Anemia, unspecified SNOMED: 980070604 (4) Constipation ICD Codes: K59.00 - Constipation, unspecified SNOMED: 50503857 (5) Parkinson disease ICD Codes: G20 - Parkinson's disease SNOMED: 98893119 (6) PVD (peripheral vascular disease) ICD Codes: I73.9 - Peripheral vascular disease, unspecified SNOMED: 182497335 Assessment/Plan patient has rectal bleed, positive stool OB needs EGD and colonoscopy but there is no family available for consent D/W PMD plan EGD and colonoscopy today Subjective Gastrointestinal/Abdominal: Reports: blood in stool Subjective rectal bleed Objective Last 24 Hour Vital Signs Date Time Temp Pulse Resp B/P (MAP) Pulse Ox O2 Delivery O2 Flow Rate FiO2 04/25/17 08:00 97.3 70 18 104/64 100 Room Air 97.3 04/25/17 04:00 Room Air 04/25/17 04:00 97.5 63 16 141/71 99 97.5 04/25/17 00:00 Room Air 04/25/17 00:00 97.3 74 18 131/84 98 97.3 04/24/17 20:00 98.1 71 22 114/76 95 98.1 04/24/17 20:00 Room Air 04/24/17 15:52 96.2 71 19 114/66 100 96.2 04/24/17 12:00 96.2 72 19 122/66 100 96.2 Intake and Output 04/24/17 04/25/17 19:00 07:00 Intake Total 695 ml 4260 ml Balance 695 ml 4260 ml Intake IV Total 695 ml 760 ml Other 3500 ml # Bowel Movements 1 8 Laboratory Tests Test 04/24/17 10:15 04/25/17 05:10 White Blood Count 7.4 K/UL (4.8-10.8) 7.8 K/UL (4.8-10.8) Red Blood Count 4.87 M/UL (4.70-6.10) 4.77 M/UL (4.70-6.10) Hemoglobin 11.4 G/DL (14.2-18.0) L 11.7 G/DL (14.2-18.0) L Hematocrit 37.4 % (42.0-52.0) L 36.6 % (42.0-52.0) L Mean Corpuscular Volume 77 FL (80-99) L 77 FL (80-99) L Mean Corpuscular Hemoglobin 23.4 PG (27.0-31.0) L 24.4 PG (27.0-31.0) L Mean Corpuscular Hemoglobin Concent 30.4 G/DL (32.0-36.0) L 31.8 G/DL (32.0-36.0) L Red Cell Distribution Width 29.5 % (11.6-14.8) H 29.6 % (11.6-14.8) H Platelet Count 120 K/UL (150-450) L 122 K/UL (150-450) L Mean Platelet Volume 6.7 FL (6.5-10.1) 6.6 FL (6.5-10.1) Neutrophils (%) (Auto) 78.6 % (45.0-75.0) H % (45.0-75.0) Lymphocytes (%) (Auto) 13.1 % (20.0-45.0) L % (20.0-45.0) Monocytes (%) (Auto) 6.9 % (1.0-10.0) % (1.0-10.0) Eosinophils (%) (Auto) 0.8 % (0.0-3.0) % (0.0-3.0) Basophils (%) (Auto) 0.6 % (0.0-2.0) % (0.0-2.0) Sodium Level 139 MMOL/L (136-145) 140 MMOL/L (136-145) Potassium Level 4.2 MMOL/L (3.5-5.1) 3.7 MMOL/L (3.5-5.1) Chloride Level 105 MMOL/L (98-107) 105 MMOL/L (98-107) Carbon Dioxide Level 27 MMOL/L (21-32) 23 MMOL/L (21-32) Anion Gap 7 mmol/L (5-15) 12 mmol/L (5-15) Blood Urea Nitrogen 13 mg/dL (7-18) 14 mg/dL (7-18) Creatinine 0.9 MG/DL (0.55-1.30) 0.9 MG/DL (0.55-1.30) Estimat Glomerular Filtration Rate mL/min (>60) mL/min (>60) Glucose Level 91 MG/DL (74-106) 110 MG/DL (74-106) H Calcium Level 8.2 MG/DL (8.5-10.1) L 8.0 MG/DL (8.5-10.1) L Total Bilirubin 0.9 MG/DL (0.2-1.0) 1.3 MG/DL (0.2-1.0) H Aspartate Amino Transf (AST/SGOT) 288 U/L (15-37) H 298 U/L (15-37) H Alanine Aminotransferase (ALT/SGPT) 26 U/L (12-78) 24 U/L (12-78) Alkaline Phosphatase 679 U/L (46-116) H 754 U/L (46-116) H Total Protein 6.3 G/DL (6.4-8.2) L 6.1 G/DL (6.4-8.2) L Albumin 1.8 G/DL (3.4-5.0) L 1.7 G/DL (3.4-5.0) L Globulin 4.5 g/dL 4.4 g/dL Albumin/Globulin Ratio 0.4 (1.0-2.7) L 0.4 (1.0-2.7) L Differential Total Cells Counted 100 Neutrophils % (Manual) 84 % (45-75) H Lymphocytes % (Manual) 14 % (20-45) L Monocytes % (Manual) 2 % (1-10) Eosinophils % (Manual) 0 % (0-3) Basophils % (Manual) 0 % (0-2) Band Neutrophils 0 % (0-8) Platelet Estimate Decreased L Platelet Morphology Normal Anisocytosis 2+ Microcytosis 1+ Prothrombin Time 14.7 SEC (9.30-11.50) H Prothromb Time International Ratio 1.4 (0.9-1.1) H Direct Bilirubin 0.8 MG/DL (0.0-0.3) H Hepatitis A IgM Antibody Pending Hepatitis B Surface Antigen Pending Hepatitis B Core IgM Antibody Pending Hepatitis C Antibody Pending Height (Feet): 5 Height (Inches): 4.00 Weight (Pounds): 130 General Appearance: confused Cardiovascular: normal rate Respiratory/Chest: lungs clear Abdominal Exam: soft, decreased bowel sounds Extremities: non-tender DEVIN FISCHER Apr 25, 2017 09:30
[2017-04-25] MEDS: Digoxin 0.125mg tab ORAL SCH (09:40)
[2017-04-25] MEDS: Depakote ER 250mg tab ORAL SCH ×2 (09:41→20:19)
[2017-04-25] MEDS: Pramipexole 0.5mg tab ORAL SCH ×2 (09:41→18:30)
[2017-04-25] MEDS: Multivitamin w/Minerals tab ORAL SCH (09:41)
[2017-04-25] MEDS: Docusate 100mg cap ORAL SCH ×2 (09:42→18:00)
[2017-04-25] MEDS: Milk of Magnesia 30ml Ud ORAL SCH (09:42)
[2017-04-25] MEDS: Levodopa/Carbidopa 25/100 tab ORAL SCH ×3 (09:42→18:30)
--- NOTE | 2017-04-25 09:51 | Pre-Procedure Note/Attestation ---
Pre-Procedure Note/Attestation Complete Prior to Procedure Planned Procedure: not applicable Procedure Narrative: esophagogastroduodenoscopy and colonoscopy Indications for Procedure Pre-Operative Diagnosis: GIB Attestation I attest that I discussed the nature of the procedure; its benefits; risks and complications; and alternatives (and the risks and benefits of such alternatives ), prior to the procedure, with the patient (or the patient's legal agency service representative). I attest that, if there was a reasonable possibility of needing a blood transfusion, the patient (or the patient's legal agency service representative) was given the [facility] standardized written summary, pursuant to the [place] Blood Safety Act ([place] Health and Safety Code # 1645, as amended). I attest that I re-evaluated the patient just prior to the surgery and that there has been no change in the patient's H&P, except as documented below: DEVIN FISCHER Apr 25, 2017 09:51
[2017-04-25] MEDS ORDERED: D5 1/2NS 1000ml IV ONE (10:00)
[2017-04-25] MEDS ORDERED: Tubing IV Secondary IV ONE (10:00)
[2017-04-25] MEDS: Vitamin A&D Oint 2oz Tube TOPIC SCH ×2 (10:14→20:19)
[2017-04-25] MEDS: cefTRIAXone 2 GM in NS 55 ML IVPB SCH (10:39)
[2017-04-25] MEDS ORDERED: NS 500ML IV ONE (11:20)
[2017-04-25] MEDS ORDERED: Propofol 200mg/20ml IV ONE (11:30)
--- NOTE | 2017-04-25 11:54 | Anethesia Preoperative Eval ---
Anesthesia Pre-op PMH/ROS General Date of Evaluation: Apr 25, 2017 Time of Evaluation: 11:30 Anesthesiologist: Reza ASA Score: ASA 4 Mallampati Score Class I : Soft palate, uvula, fauces, pillars visible Class II: Soft palate, uvula, fauces visible Class III: Soft palate, base of uvula visible Class IV: Only hard plate visible Mallampati Classification: Class II Surgeon: Guy Diagnosis: GI bleed, anemia Surgical Procedure: EGD, Colonoscopy Allergies: Coded Allergies: No Known Allergies (Unverified , 04/27/15) Medications: see eMAR Past Medical History Cardiovascular: Reports: HTN Neurologic/Psychiatric: Reports: dementia, other - Parkinsons PMH Narrative: HTN, DM, PVD, Parkinson's, dementia PSxH Narrative: PPM, bilateral LE amputations Anesthesia Pre-op Phys. Exam Physician Exam Last Vital Signs Date Time Temp Pulse Resp B/P (MAP) Pulse Ox O2 Delivery O2 Flow Rate FiO2 04/25/17 09:40 70 04/25/17 08:00 97.3 18 104/64 100 Room Air 97.3 Neurologic: other - Patient non communicative Cardiovascular: RRR, no M/R/G Respiratory: CTA Gastrointestinal: S/NT/ND Airway Exam Mallampati Score: Class IV MO: limited ROM: limited Teeth: missing Anesthesia Pre-op A/P Labs Hematology Test 04/25/17 05:10 White Blood Count 7.8 K/UL (4.8-10.8) Red Blood Count 4.77 M/UL (4.70-6.10) Hemoglobin 11.7 G/DL (14.2-18.0) L Hematocrit 36.6 % (42.0-52.0) L Mean Corpuscular Volume 77 FL (80-99) L Mean Corpuscular Hemoglobin 24.4 PG (27.0-31.0) L Mean Corpuscular Hemoglobin Concent 31.8 G/DL (32.0-36.0) L Red Cell Distribution Width 29.6 % (11.6-14.8) H Platelet Count 122 K/UL (150-450) L Mean Platelet Volume 6.6 FL (6.5-10.1) Neutrophils (%) (Auto) % (45.0-75.0) Lymphocytes (%) (Auto) % (20.0-45.0) Monocytes (%) (Auto) % (1.0-10.0) Eosinophils (%) (Auto) % (0.0-3.0) Basophils (%) (Auto) % (0.0-2.0) Differential Total Cells Counted 100 Neutrophils % (Manual) 84 % (45-75) H Lymphocytes % (Manual) 14 % (20-45) L Monocytes % (Manual) 2 % (1-10) Eosinophils % (Manual) 0 % (0-3) Basophils % (Manual) 0 % (0-2) Band Neutrophils 0 % (0-8) Platelet Estimate Decreased L Platelet Morphology Normal Anisocytosis 2+ Microcytosis 1+ Coagulation Test 04/25/17 05:10 Prothrombin Time 14.7 SEC (9.30-11.50) H Prothromb Time International Ratio 1.4 (0.9-1.1) H Chemistry Test 04/25/17 05:10 Sodium Level 140 MMOL/L (136-145) Potassium Level 3.7 MMOL/L (3.5-5.1) Chloride Level 105 MMOL/L (98-107) Carbon Dioxide Level 23 MMOL/L (21-32) Anion Gap 12 mmol/L (5-15) Blood Urea Nitrogen 14 mg/dL (7-18) Creatinine 0.9 MG/DL (0.55-1.30) Estimat Glomerular Filtration Rate mL/min (>60) Glucose Level 110 MG/DL (74-106) H Calcium Level 8.0 MG/DL (8.5-10.1) L Total Bilirubin 1.3 MG/DL (0.2-1.0) H Direct Bilirubin 0.8 MG/DL (0.0-0.3) H Aspartate Amino Transf (AST/SGOT) 298 U/L (15-37) H Alanine Aminotransferase (ALT/SGPT) 24 U/L (12-78) Alkaline Phosphatase 754 U/L (46-116) H Total Protein 6.1 G/DL (6.4-8.2) L Albumin 1.7 G/DL (3.4-5.0) L Globulin 4.4 g/dL Albumin/Globulin Ratio 0.4 (1.0-2.7) L Risk Assessment & Plan Assessment: Patient with multiple organ disease now with GI bleed and anemia Plan: BAILEY RICHARDS PAUL M.D. Apr 25, 2017 11:54
--- NOTE | 2017-04-25 11:57 | Immediate Post-Op Evaluation ---
Immediate Post-Op Evalulation Immediate Post-Op Evalulation Procedure: EGD, colonoscopy Date of Evaluation: Apr 25, 2017 Time of Evaluation: 12:30 IV Fluids: 300 Blood Pressure Systolic: 90 Blood Pressure Diastolic: 58 Pulse Rate: 73 Respiratory Rate: 22 O2 Sat by Pulse Oximetry: 100 Temperature (Fahrenheit): 97.8 Pain Score (1-10): 0 Nausea: No Vomiting: No Complications No complication Patient Status: reacts, patent, none Hydration Status: adequate Drug: None JASON CHAMBERLAIN M.D. Apr 25, 2017 11:57
--- NOTE | 2017-04-25 12:11 | Endoscopy Procedure Note ---
Endoscopy Procedure Note General Indication for Procedure: rectal bleed Procedures Performed: EGD, colonoscopy Operative Findings/Diagnosis: rectal cancer Specimen: yes Pt Tolerated Procedure Well: Yes Estimated Blood Loss: none Anesthesia Anesthesiologist: robert Anesthesia: MAC Inserted Devices Implant(s) used?: No Quality Quality of Bowel Preparation: Poor Did scope reach the cecum?: No Was there any complications?: No GI Core Measures 50 yrs or older w/o bx or poly: Not Applicable 10yrs. F/U not recommended: Not Applicable DEVIN FISCHER Apr 25, 2017 12:11
--- NOTE | 2017-04-25 13:51 | General Progress Note ---
Assessment/Plan Problem List: (1) UTI (urinary tract infection) ICD Codes: N39.0 - Urinary tract infection, site not specified SNOMED: 16491526 (2) Hypoalbuminemia ICD Codes: E88.09 - Other disorders of plasma-protein metabolism, not elsewhere classified SNOMED: 541949147 (3) Acute GI bleeding ICD Codes: K92.2 - Gastrointestinal hemorrhage, unspecified SNOMED: 95133018 (4) Anemia ICD Codes: D64.9 - Anemia, unspecified SNOMED: 483183240 (5) Parkinson disease ICD Codes: G20 - Parkinson's disease SNOMED: 77963891 (6) PVD (peripheral vascular disease) ICD Codes: I73.9 - Peripheral vascular disease, unspecified SNOMED: 051079081 Status: unchanged Assessment/Plan ot pt diet abx cbc bmp am per gi need egd colonoscopy and ct abd Subjective Constitutional: Reports: weakness Allergies: Coded Allergies: No Known Allergies (Unverified , 04/27/15) All Systems: reviewed and negative except above Subjective sleepy calm in bed Objective Last 24 Hour Vital Signs Date Time Temp Pulse Resp B/P (MAP) Pulse Ox O2 Delivery O2 Flow Rate FiO2 04/25/17 12:35 69 20 103/62 98 Room Air 04/25/17 12:30 72 20 96/61 100 Simple Mask 6.0 04/25/17 12:25 69 18 94/54 100 Simple Mask 6.0 04/25/17 12:22 208.0 73 22 100 04/25/17 12:20 97.8 72 20 90/58 100 Simple Mask 6.0 97.8 04/25/17 09:40 70 04/25/17 08:00 97.3 70 18 104/64 100 Room Air 97.3 04/25/17 04:00 Room Air 04/25/17 04:00 97.5 63 16 141/71 99 97.5 04/25/17 00:00 Room Air 04/25/17 00:00 97.3 74 18 131/84 98 97.3 04/24/17 20:00 98.1 71 22 114/76 95 98.1 04/24/17 20:00 Room Air 04/24/17 15:52 96.2 71 19 114/66 100 96.2 Intake and Output 04/24/17 04/25/17 19:00 07:00 Intake Total 695 ml 4320 ml Balance 695 ml 4320 ml Intake IV Total 695 ml 820 ml Other 3500 ml # Bowel Movements 1 8 Laboratory Tests 04/25/17 05:10: White Blood Count 7.8, Red Blood Count 4.77, Hemoglobin 11.7L, Hematocrit 36.6L , Mean Corpuscular Volume 77L, Mean Corpuscular Hemoglobin 24.4L, Mean Corpuscular Hemoglobin Concent 31.8L, Red Cell Distribution Width 29.6H, Platelet Count 122L, Mean Platelet Volume 6.6, Neutrophils (%) (Auto) , Lymphocytes (%) (Auto) , Monocytes (%) (Auto) , Eosinophils (%) (Auto) , Basophils (%) (Auto) , Differential Total Cells Counted 100, Neutrophils % ( Manual) 84H, Lymphocytes % (Manual) 14L, Monocytes % (Manual) 2, Eosinophils % ( Manual) 0, Basophils % (Manual) 0, Band Neutrophils 0, Platelet Estimate DecreasedL, Platelet Morphology Normal, Anisocytosis 2+, Microcytosis 1+, Prothrombin Time 14.7H, Prothromb Time International Ratio 1.4H, Sodium Level 140, Potassium Level 3.7, Chloride Level 105, Carbon Dioxide Level 23, Anion Gap 12, Blood Urea Nitrogen 14, Creatinine 0.9, Estimat Glomerular Filtration Rate , Glucose Level 110H, Calcium Level 8.0L, Total Bilirubin 1.3H, Direct Bilirubin 0.8H, Aspartate Amino Transf (AST/SGOT) 298H, Alanine Aminotransferase (ALT/SGPT) 24, Alkaline Phosphatase 754H, Total Protein 6.1L, Albumin 1.7L, Globulin 4.4, Albumin/Globulin Ratio 0.4L, Hepatitis A IgM Antibody [Pending], Hepatitis B Surface Antigen [Pending], Hepatitis B Core IgM Antibody [Pending], Hepatitis C Antibody [Pending] Height (Feet): 5 Height (Inches): 4.00 Weight (Pounds): 130 General Appearance: lethargic EENT: normal ENT inspection Neck: normal alignment Cardiovascular: normal peripheral pulses, normal rate, regular rhythm Respiratory/Chest: chest wall non-tender, lungs clear, normal breath sounds Abdomen: normal bowel sounds, non tender, soft Extremities: normal inspection Edema: no edema noted Arm (L), no edema noted Arm (R), no edema noted Leg (L), no edema noted Leg (R), no edema noted Pedal (L), no edema noted Pedal (R), no edema noted Generalized Neurologic: motor weakness Skin: normal pigmentation, warm/dry WILLA CHILDRESS Apr 25, 2017 13:51
[2017-04-25] MEDS: D5 1/2NS 1,000 ML IV SCH (16:25)
--- NOTE | 2017-04-25 16:45 | Procedure Note ---
DATE OF PROCEDURE: 04/25/2017 PROCEDURE: Upper endoscopy and flexible sigmoidoscopy with biopsy. ANESTHESIA: Per Smooth Cobb M.D. INSTRUMENT: Olympus adult flexible upper endoscope and colonoscope. INDICATION: Anemia and rectal bleeding. REASON FOR PROCEDURE: The procedure, risks, benefits, and possible consequences, including hemorrhage, aspiration, perforation and infection, and alternative treatments, were explained to the patient/legal guardian by Dr. Ton Tovar and the patient/legal guardian understood and accepted these risks. PROCEDURES: After informed consent was obtained and the patient was adequately sedated, Olympus upper endoscope was advanced from mouth into the second portion of the duodenum and retroflexion was performed of the stomach. The patient has atrophic gastritis. Random biopsy from antrum was obtained to rule out H. pylori infection. At this time, the upper endoscope was retrieved and procedure was terminated and the patient was turned over for colonoscopy. First, a rectal exam was performed, which was positive for mass. Then, the scope was advanced from rectum into the sigmoid. Unfortunately given the poor prep we could not advance the scope beyond this point. The patient had a large rectal mass starting at about 6 to 7 cm from the anal verge expanding to about 3 to 4 cm in the rectum, we could not again advanced the scope all the way in because of the poor prep so we had to terminate the procedure. We obtained lot of biopsy from this rectal mass. SUMMARY OF FINDINGS: 1. Gastritis status post status post biopsy. 2. Incomplete colonoscopy only flexible was obtained given poor prep. 3. Large rectal mass, see above for details. RECOMMENDATIONS: 1. CT of the abdomen and pelvis to evaluate for metastasis. 2. Followup biopsy results. 3. Oncology evaluation. I want to thank, Dr. Raad Sun, for this kind referral. Ton Tovar M.D. DR: Fermin JOB#: [id number] CC: Raad Sun D.O.
--- NOTE | 2017-04-25 17:03 | Diagnostic Imaging Report ---
Clinical Indication: Recently diagnosed colon carcinoma, chest and abdominal pain, staging Technique: Spiral acquisitions obtained through the chest. No IV contrast utilized, as no family members were available to sign consent. Multiplanar reconstructions generated. Total dose length product 1137.58 mGycm. CTDIvol(s) 12.82,12.54 mGy, inclusive of abdomen and pelvis CT performed at same time. Dose reduction achieved using automated exposure control Comparison: none Findings: There is a calcified granuloma in the right costophrenic sulcus, and another in the superior segment of the left lower lobe. There is a noncalcified 3 mm nodule in the inferior left lower lobe, image 34 series 5. There is thickening of or fluid within the major fissure on the right. There are dependent atelectatic changes at both lung bases. No definite masses. No infiltrates. No effusions. The heart size is normal. There is a hypoattenuating nodule with some calcifications in the left thyroid lower pole which measures 16 mm in diameter. There is a right chest pacemaker. The esophagus is unremarkable. No mediastinal or hilar mass or adenopathy. The ascending thoracic aorta is somewhat ectatic but not aneurysmal, measuring 41 mm in diameter. There is minimal anterior wall pericardial thickening versus fluid. There is mild edema of the subcutaneous fat. No axillary or chest wall mass or adenopathy The bones demonstrate smooth mild kyphotic deformity without focal compression abnormality. There is a left chest pacemaker Impression: 3 mm nodule in the inferior left lower lobe, image 34 series 5. Recommend short interval follow-up CT at 6-12 months if clinically indicated Evidence of old granulomatous disease No other nodules or masses. Thickening of or fluid within the right major fissure Posterior dependent atelectatic changes. 16 mm thyroid nodule in the left lower pole with calcifications. Consider further evaluation with thyroid ultrasound Pacemaker The CT scanner at [facility] is accredited by the [employer] and the scans are performed using protocols designed to limit radiation exposure to as low as reasonably achievable to attain images of sufficient resolution adequate for diagnostic evaluation.
--- NOTE | 2017-04-25 17:15 | Progress Note ---
DATE: 04/25/2017 SUBJECTIVE: The patient is a 77-year-old male with GI distress. This patient has some confusion, disorganized thought process, mood lability, worsened by stress of his medical illness. That is why, his attending has requested daily psychiatric consultation. On interview today, he is very confused, disorganized, presents with mood lability and anxiety. MENTAL STATUS EXAMINATION: The patient is a 77-year-old male with psychomotor agitation. Mood is irritable and agitated. Affect is guarded and restricted. Thought process is disorganized and illogical. Denies any current suicidal or homicidal thoughts. Insight and judgment poor. DIAGNOSIS: Major depression with psychotic features, rule out pseudodementia. PLAN: Treat him with Depakote ER 750 mg q.12 h. and Ativan 0.5 mg every 6 hours p.r.n. anxiety and agitation. A 15 to 20 minutes of supportive therapy provided. Chart reviewed and discussed with staff. Seen and assessed at bedside. Tia Lambert M.D. DR: Isidoro JOB#: [id number] CC:
--- NOTE | 2017-04-25 17:17 | Diagnostic Imaging Report ---
Indication: Abdominal pain Technique: Spiral acquisitions obtained through the abdomen and pelvis. No oral contrast utilized, per referring physician request No IV contrast utilized, as no family members were available to provide consent for such. Multiplanar reconstructions were generated. Total dose length product 1137 mGycm. CTDIvol(s) 12 and 12 mGy, inclusive of chest CT performed at same time. Dose reduction achieved using automated exposure control Comparison: None Findings: There is anasarca, with diffuse edema of the subcutaneous and abdominal fat, as well as a small amount of ascites fluid. Apparent wall thickening at the rectosigmoid junction likely reflects sigmoid mass reportedly seen at recent endoscopy. This appears to extend for over 10 cm and measures approximately 4 cm transverse. There is distention of the distal sigmoid with stool proximal to this, distal sigmoid measuring up to 8 cm in diameter. A few prominent but not frankly enlarged perirectal lymph nodes are demonstrated. Lack of enteric contrast limits assessment of the remainder of the GI tract. The appendix is not definitely demonstrated, but no findings to suggest acute appendicitis are evident. Small bowel loops are prominent, gas-filled, per limits of normal in caliber and not frankly dilated. No free intraperitoneal air. The stomach is nondistended, grossly unremarkable. The duodenum is unremarkable. The liver is enlarged. It is diffusely heterogeneous in attenuation the gallbladder contains gallstones. No biliary ductal dilatation. The pancreas, spleen, adrenals, left kidney are unremarkable. The right kidney demonstrates an exophytic lower pole lesion which is too small to characterize surgical clips are seen in the pelvis and the prostate appears to be absent. Small fluid collection versus a right testicle is seen within the right inguinal canal. The bones are remarkable for a superior endplate compression fracture deformity of the L4 vertebral body. Impression: Apparent wall thickening/mass at the rectosigmoid junction, likely reflects mass reported to been evident at recent endoscopy. Enlarged liver. Diffuse heterogeneity is concerning for diffuse involvement with metastases Small amount of ascites fluid L4 superior endplate compression fracture, acuity indeterminate. Consider MRI if this is clinically relevant Small fluid collection versus incompletely descended or transiently elevated right testicle in the right inguinal canal Subcentimeter exophytic right lower pole renal lesion, too small to characterize, most likely a hyperdense cyst. No further follow-up necessary The CT scanner at [facility] is accredited by the [employer] and the scans are performed using protocols designed to limit radiation exposure to as low as reasonably achievable to attain images of sufficient resolution adequate for diagnostic evaluation.
[2017-04-25] MEDS: Miralax 17gm pkt ORAL SCH (20:14)
--- NOTE | 2017-04-25 21:04 | Infectious Diseases Prog Note ---
Assessment/Plan Assessment/Plan ASSESSMENT: The patient is a 77-year-old male with: Transaminitis / Elevated alkaline phosphatase Ultrasound of the abdomen: No biliary obst. or cholecystitis Afebrile. Normal white blood cells Lung nodule 3 mm nodule in the inferior left lower lobe lower gastrointestinal bleed Colonoscopy : rectal cancer CT: wall thickening/mass at the rectosigmoid junction Anemia. Parkinson disease. Peripheral vascular disease. PLAN: continue the patient on Rocephin and Flagyl d# 3 / 5 Monitor CBC. Monitor BMP. Monitor cultures (blood and urine). Hep panel Subjective Constitutional: Denies: no symptoms, fever, chills, fatigue, anorexia, drenching sweats, other Allergies: Coded Allergies: No Known Allergies (Unverified , 04/27/15) Subjective afebrile Objective Vital Signs Last 24 Hour Vital Signs Date Time Temp Pulse Resp B/P (MAP) Pulse Ox O2 Delivery O2 Flow Rate FiO2 04/25/17 20:00 96.6 78 19 93/65 99 Room Air 96.6 04/25/17 13:30 97.6 73 18 109/69 98 97.6 04/25/17 12:35 69 20 103/62 98 Room Air 04/25/17 12:30 72 20 96/61 100 Simple Mask 6.0 04/25/17 12:25 69 18 94/54 100 Simple Mask 6.0 04/25/17 12:22 208.0 73 22 100 04/25/17 12:20 97.8 72 20 90/58 100 Simple Mask 6.0 97.8 04/25/17 09:40 70 04/25/17 08:00 97.3 70 18 104/64 100 Room Air 97.3 04/25/17 04:00 Room Air 04/25/17 04:00 97.5 63 16 141/71 99 97.5 04/25/17 00:00 Room Air 04/25/17 00:00 97.3 74 18 131/84 98 97.3 Height (Feet): 5 Height (Inches): 4.00 Weight (Pounds): 130 HEENT: mucous membranes moist Respiratory/Chest: no respiratory distress Cardiovascular: regularly irregular Abdomen: no organomegaly Microbiology Date/Time Source Procedure Growth Status 04/23/17 11:20 Blood Blood Culture - Preliminary NO GROWTH AFTER 24 HOURS Resulted 04/23/17 11:15 Blood Blood Culture - Preliminary NO GROWTH AFTER 24 HOURS Resulted Laboratory Tests Test 04/25/17 05:10 White Blood Count 7.8 K/UL (4.8-10.8) Red Blood Count 4.77 M/UL (4.70-6.10) Hemoglobin 11.7 G/DL (14.2-18.0) L Hematocrit 36.6 % (42.0-52.0) L Mean Corpuscular Volume 77 FL (80-99) L Mean Corpuscular Hemoglobin 24.4 PG (27.0-31.0) L Mean Corpuscular Hemoglobin Concent 31.8 G/DL (32.0-36.0) L Red Cell Distribution Width 29.6 % (11.6-14.8) H Platelet Count 122 K/UL (150-450) L Mean Platelet Volume 6.6 FL (6.5-10.1) Neutrophils (%) (Auto) % (45.0-75.0) Lymphocytes (%) (Auto) % (20.0-45.0) Monocytes (%) (Auto) % (1.0-10.0) Eosinophils (%) (Auto) % (0.0-3.0) Basophils (%) (Auto) % (0.0-2.0) Differential Total Cells Counted 100 Neutrophils % (Manual) 84 % (45-75) H Lymphocytes % (Manual) 14 % (20-45) L Monocytes % (Manual) 2 % (1-10) Eosinophils % (Manual) 0 % (0-3) Basophils % (Manual) 0 % (0-2) Band Neutrophils 0 % (0-8) Platelet Estimate Decreased L Platelet Morphology Normal Anisocytosis 2+ Microcytosis 1+ Prothrombin Time 14.7 SEC (9.30-11.50) H Prothromb Time International Ratio 1.4 (0.9-1.1) H Sodium Level 140 MMOL/L (136-145) Potassium Level 3.7 MMOL/L (3.5-5.1) Chloride Level 105 MMOL/L (98-107) Carbon Dioxide Level 23 MMOL/L (21-32) Anion Gap 12 mmol/L (5-15) Blood Urea Nitrogen 14 mg/dL (7-18) Creatinine 0.9 MG/DL (0.55-1.30) Estimat Glomerular Filtration Rate mL/min (>60) Glucose Level 110 MG/DL (74-106) H Calcium Level 8.0 MG/DL (8.5-10.1) L Total Bilirubin 1.3 MG/DL (0.2-1.0) H Direct Bilirubin 0.8 MG/DL (0.0-0.3) H Aspartate Amino Transf (AST/SGOT) 298 U/L (15-37) H Alanine Aminotransferase (ALT/SGPT) 24 U/L (12-78) Alkaline Phosphatase 754 U/L (46-116) H Total Protein 6.1 G/DL (6.4-8.2) L Albumin 1.7 G/DL (3.4-5.0) L Globulin 4.4 g/dL Albumin/Globulin Ratio 0.4 (1.0-2.7) L Hepatitis A IgM Antibody Pending Hepatitis B Surface Antigen Pending Hepatitis B Core IgM Antibody Pending Hepatitis C Antibody Pending Current Medications Medications (Trade) Dose Ordered Sig/Judson Route PRN Reason Start Time Stop Time Status Last Admin Dose Admin Acetaminophen (Tylenol) 325 mg Q6H PRN ORAL for mild pain 04/22/17 21:45 05/22/17 21:44 Acetaminophen/ Hydrocodone Bitart ([place] 5/325) 1 tab Q6H PRN ORAL for moderate pain 04/22/17 21:45 04/29/17 21:44 Al Hydroxide/Mg Hydroxide (Mylanta) 30 ml PRN ORAL 04/22/17 22:45 05/22/17 22:44 Carbidopa/Levodopa (Sinemet 25/100) 1 tab THREE TIMES A DAY ORAL 04/23/17 09:00 05/23/17 08:59 04/25/17 18:30 Ceftriaxone Sodium 2 gm/ Sodium Chloride 55 ml @ 110 mls/hr Q24H IVPB 04/23/17 11:00 04/30/17 10:59 04/25/17 10:39 Dextrose/Sodium Chloride 1,000 ml @ 60 mls/hr [id number] IV 04/22/17 21:45 05/22/17 21:44 04/24/17 23:51 Digoxin (Lanoxin) 0.125 mg DAILY ORAL 04/23/17 09:00 05/23/17 08:59 04/25/17 09:40 Divalproex Sodium (Depakote ER) 250 mg EVERY 12 HOURS ORAL 04/23/17 09:00 05/23/17 08:59 04/25/17 20:19 Docusate Sodium (Colace) 100 mg TWICE A DAY ORAL 04/23/17 09:00 05/23/17 08:59 04/25/17 09:42 Lorazepam (Ativan) 0.5 mg Q6H PRN ORAL For Anxiety 04/23/17 13:30 04/30/17 13:29 Magnesium Hydroxide (Mom) 30 ml DAILY ORAL 04/23/17 09:00 05/23/17 08:59 04/25/17 09:42 Metronidazole 100 ml @ 100 mls/hr Q8HR IVPB 04/23/17 14:00 04/30/17 13:59 04/25/17 14:07 Multivitamins Therapeutic (Therapeutic Multivitamin) 1 ea DAILY ORAL 04/23/17 09:00 05/23/17 08:59 04/25/17 09:41 Pantoprazole (Protonix) 40 mg DAILY ORAL 04/23/17 09:00 05/23/17 08:59 04/25/17 09:40 Polyethylene Glycol (Miralax) 17 gm BEDTIME ORAL 04/22/17 21:00 05/22/17 20:59 04/24/17 21:31 Pramipexole (Mirapex) 0.25 mg TWICE A DAY ORAL 04/23/17 09:00 05/23/17 08:59 04/25/17 18:30 Sodium Phosphate (Fleet's Sodium Phosl Enema) 133 ml DAILY PRN RECTAL Constipation 04/22/17 21:45 05/22/17 21:44 Vitamin A/Vitamin D (A & D Oint) 1 applic EVERY 12 HOURS TOPIC 04/22/17 21:00 05/22/17 20:59 04/25/17 20:19 KAT GLYNN M.D. Apr 25, 2017 21:03
[2017-04-26] VITALS: BP 98/64
[2017-04-26] MEDS: D5 1/2NS 1,000 ML IV SCH (02:50)
[2017-04-26 04:00] VITALS: BP 97/60
--- NOTE | 2017-04-26 04:00 | Consultation ---
DATE OF CONSULTATION: 04/24/2017 PSYCHOTHERAPY CONSULTATION PROGRESS NOTE TREATING ATTENDING PHYSICIAN: Raad Sun D.O. HISTORY OF PRESENT ILLNESS: This patient is a 77-year-old male patient from [facility]. He was brought into the hospital for gastrointestinal bleeding. He has been little anxious, agitated, depressed, confused, disorganized . His mood is labile. For those reasons, he was referred for psychotherapeutic services. This clinician assessed the patient. The patient has been very anxious, irritable, and has had poor frustration tolerance, anxiety and agitation as well. He has no logical or viable plan for self-care or safety. There is no indication for suicidal or homicidal thoughts of ideation. The patient at this time is hopeless. PAST MEDICAL HISTORY: The patient has hypertension, diabetes, Parkinson, pacemaker placement, and peripheral vascular disease. ALLERGIES: The patient has no known drug allergies. SUBSTANCE ABUSE HISTORY: There is no indication of alcohol, illicit substance use, or smoking cigarettes. PSYCHIATRIC HISTORY: The patient has a history of major depression. SOCIAL HISTORY: The patient is a 77-year-old male patient from [facility]. Financially sustained through [employer]. MENTAL STATUS EXAMINATION: The patient is alert and oriented to person and place. Mood is anxious. Affect is blunted. Thought process, the patient has poor attention and concentration. DIAGNOSIS: Major depressive disorder with psychotic features and rule out generalized anxiety disorder. This clinician assessed this patient. Provided the patient with reality orientation, provide the patient with supportive psychotherapy. Assess the patient's mental status. Continue with behavioral management. This clinician has reviewed the patient's chart and discussed the treatment with treatment team. Kings Nava PsyD. DR: SOFIA JOB#: [id number] CC:
--- NOTE | 2017-04-26 06:30 | Consultation ---
DATE OF CONSULTATION: 04/25/2017 NOTE: POOR AUDIO HEMATOLOGY/ONCOLOGY CONSULTATION REQUESTING PHYSICIAN: Raad Sun D.O. REASON FOR CONSULTATION: Evaluation of rectal cancer. IDENTIFYING DATA: Dear Dr. Raad Sun, The patient is a pleasant 77-year-old male with past medical history, which is significant for anemia of , peripheral vascular disease, has been admitted to the hospital for lower GI bleed and noted to be anemic. The patient is status post EGD and colonoscopy showed rectal mass with GI bleed. At this time, the biopsy report is pending of the rectal mass, and a CAT scan showed wall thickening mass at the rectosigmoid junction. CAT scan of the abdomen and pelvis reviewed, it was completed without contrast again and awaiting again results of the biopsy. PAST MEDICAL HISTORY: As noted above. PAST SURGICAL HISTORY: None noted. MEDICATIONS: Aspirin, Lanoxin, Depakote, Colace, ferrous sulfate, Mirapex, Mylanta, hydrocodone, and Fleet Enema. ALLERGIES: No known drug allergies. SOCIAL HISTORY: Difficult to ascertain. No alcohol, tobacco, or illicit drug use. REVIEW OF SYSTEMS: CONSTITUTIONAL: No fevers, chills, or night sweats. SKIN: No rashes, bumps, or itching. HEENT: No headache, hearing or vision changes. BREASTS: No lumps, pain, or discharge. PULMONARY: No cough, sputum, or shortness of breath. GASTROINTESTINAL: No nausea, vomiting, or diarrhea. GENITOURINARY: No dysuria, frequency, or urgency. MUSCULOSKELETAL: No joint swelling, muscle pain, or trauma. PHYSICAL EXAMINATION: VITAL SIGNS: Reviewed. GENERAL: No distress. PULMONARY: Decreased breath sounds. CARDIOVASCULAR: Regular rate. No S3 or S4. ABDOMEN: Soft, nontender, and nondistended. EXTREMITIES: No cyanosis, swelling, or edema. LABORATORY AND DIAGNOSTIC DATA: WBC 10.8, hemoglobin 11.7, hematocrit and platelet count 172,000. Imaging reviewed. ASSESSMENT AND RECOMMENDATIONS: 1. advanced rectal/colon cancer. Obtain reported biopsy. Imaging has been reviewed. Recommend this patient to obtain a PET scan as an outpatient. In addition, the patient may need surgical staging and neoadjuvant chemotherapy. We will need to discuss with surgery once the patient is discharged. May benefit from chemotherapy and radiation upfront rectal tumor. Again, we will need to obtain report from Dr. Tovar in addition to biopsy. 2. Anemia due to underlying gastrointestinal bleed. 3. Anemia due to underlying iron deficiency. Begin the patient on ferrous sulfate. 4. peripheral vascular disease. 5. Transaminitis. Closely monitor. 6. . I appreciate the consultation. Sarabjit Cat M.D. DR: TAN JOB#: [id number] CC:
[2017-04-26 08:00] VITALS: BP 106/57
[2017-04-26] MEDS ORDERED: Sodium Chloride 500ML 500 ML IV ONE (08:15)
[2017-04-26 08:44] LABS: HEMATOCRIT 30.7 % (42.0-52.0); HEMOGLOBIN 9.7 G/DL (14.2-18.0); MEAN CORPUSCULAR VOLUME 77 FL (80-99); PLATELET COUNT 88 K/UL (150-450); RED BLOOD COUNT 3.97 M/UL (4.70-6.10); RED CELL DISTRIBUTION WIDTH 29.8 % (11.6-14.8); WHITE BLOOD COUNT 7.1 K/UL (4.8-10.8)
[2017-04-26 09:23] LABS: ANION GAP 12 mmol/L (5-15); BLOOD UREA NITROGEN 16 mg/dL (7-18); CALCIUM 7.9 MG/DL (8.5-10.1); CARBON DIOXIDE 23 MMOL/L (21-32); CHLORIDE 107 MMOL/L (98-107); CREATININE 0.8 MG/DL (0.55-1.30); POTASSIUM 3.4 MMOL/L (3.5-5.1); SODIUM 142 MMOL/L (136-145)
[2017-04-26] MEDS: Docusate 100mg cap ORAL SCH ×2 (09:34→18:36)
[2017-04-26] MEDS: Multivitamin w/Minerals tab ORAL SCH (09:35)
[2017-04-26] MEDS: Digoxin 0.125mg tab ORAL SCH (09:37)
[2017-04-26] MEDS: Levodopa/Carbidopa 25/100 tab ORAL SCH ×3 (09:39→18:36)
[2017-04-26] MEDS: Pramipexole 0.5mg tab ORAL SCH ×2 (09:39→18:36)
[2017-04-26] MEDS: Depakote ER 250mg tab ORAL SCH ×2 (09:40→20:35)
[2017-04-26] MEDS: Milk of Magnesia 30ml Ud ORAL SCH (09:41)
[2017-04-26] MEDS: Vitamin A&D Oint 2oz Tube TOPIC SCH ×2 (09:41→20:37)
[2017-04-26] MEDS: cefTRIAXone 2 GM in NS 55 ML IVPB SCH (11:42)
[2017-04-26 12:00] VITALS: BP 96/61
--- NOTE | 2017-04-26 12:53 | Infectious Diseases Prog Note ---
Assessment/Plan Assessment/Plan ASSESSMENT: The patient is a 77-year-old male with: Transaminitis / Elevated alkaline phosphatase Ultrasound of the abdomen: No biliary obst. or cholecystitis Hep panel : neg Afebrile Normal WBC Lung nodule 3 mm nodule in the inferior left lower lobe lower gastrointestinal bleed Colonoscopy : rectal cancer CT: wall thickening/mass at the rectosigmoid junction Anemia. Parkinson disease. Peripheral vascular disease. PLAN: continue the patient on Rocephin and Flagyl d# 4 / 5 Monitor CBC. Monitor BMP. Monitor cultures (blood) Subjective Allergies: Coded Allergies: No Known Allergies (Unverified , 04/27/15) Subjective afebrile Objective Vital Signs Last 24 Hour Vital Signs Date Time Temp Pulse Resp B/P (MAP) Pulse Ox O2 Delivery O2 Flow Rate FiO2 04/26/17 12:00 97.3 71 18 96/61 100 Room Air 97.3 04/26/17 09:37 70 04/26/17 08:00 97.7 70 18 106/57 99 Room Air 97.7 04/26/17 04:23 Room Air 04/26/17 04:00 97.2 72 20 97/60 97 Room Air 97.2 04/26/17 00:00 97.0 70 21 98/64 99 Room Air 97.0 04/26/17 00:00 Room Air 04/25/17 20:00 96.6 78 19 93/65 99 Room Air 96.6 04/25/17 13:30 97.6 73 18 109/69 98 97.6 Height (Feet): 5 Height (Inches): 4.00 Weight (Pounds): 130 HEENT: anicteric Respiratory/Chest: no respiratory distress Cardiovascular: regularly irregular Abdomen: soft, non tender Laboratory Tests Test 04/26/17 07:35 White Blood Count 7.1 K/UL (4.8-10.8) Red Blood Count 3.97 M/UL (4.70-6.10) L Hemoglobin 9.7 G/DL (14.2-18.0) L Hematocrit 30.7 % (42.0-52.0) L Mean Corpuscular Volume 77 FL (80-99) L Mean Corpuscular Hemoglobin 24.5 PG (27.0-31.0) L Mean Corpuscular Hemoglobin Concent 31.6 G/DL (32.0-36.0) L Red Cell Distribution Width 29.8 % (11.6-14.8) H Platelet Count 88 K/UL (150-450) L Mean Platelet Volume 8.2 FL (6.5-10.1) Neutrophils (%) (Auto) % (45.0-75.0) Lymphocytes (%) (Auto) % (20.0-45.0) Monocytes (%) (Auto) % (1.0-10.0) Eosinophils (%) (Auto) % (0.0-3.0) Basophils (%) (Auto) % (0.0-2.0) Differential Total Cells Counted 100 Neutrophils % (Manual) 85 % (45-75) H Lymphocytes % (Manual) 9 % (20-45) L Monocytes % (Manual) 6 % (1-10) Eosinophils % (Manual) 0 % (0-3) Basophils % (Manual) 0 % (0-2) Band Neutrophils 0 % (0-8) Platelet Estimate Decreased L Platelet Morphology Normal Hypochromasia 2+ Anisocytosis 4+ Microcytosis 1+ Sodium Level 142 MMOL/L (136-145) Potassium Level 3.4 MMOL/L (3.5-5.1) L Chloride Level 107 MMOL/L (98-107) Carbon Dioxide Level 23 MMOL/L (21-32) Anion Gap 12 mmol/L (5-15) Blood Urea Nitrogen 16 mg/dL (7-18) Creatinine 0.8 MG/DL (0.55-1.30) Estimat Glomerular Filtration Rate mL/min (>60) Glucose Level 78 MG/DL (74-106) Calcium Level 7.9 MG/DL (8.5-10.1) L Alpha Fetoprotein Pending Current Medications Medications (Trade) Dose Ordered Sig/Judson Route PRN Reason Start Time Stop Time Status Last Admin Dose Admin Acetaminophen (Tylenol) 325 mg Q6H PRN ORAL for mild pain 04/22/17 21:45 05/22/17 21:44 Acetaminophen/ Hydrocodone Bitart ([place] 5/325) 1 tab Q6H PRN ORAL for moderate pain 04/22/17 21:45 04/29/17 21:44 Al Hydroxide/Mg Hydroxide (Mylanta) 30 ml PRN ORAL 04/22/17 22:45 05/22/17 22:44 Carbidopa/Levodopa (Sinemet 25/100) 1 tab THREE TIMES A DAY ORAL 04/23/17 09:00 05/23/17 08:59 04/26/17 09:39 Ceftriaxone Sodium 2 gm/ Sodium Chloride 55 ml @ 110 mls/hr Q24H IVPB 04/23/17 11:00 04/30/17 10:59 04/26/17 11:42 Dextrose/Sodium Chloride 1,000 ml @ 60 mls/hr [id number] IV 04/22/17 21:45 05/22/17 21:44 04/26/17 02:50 Digoxin (Lanoxin) 0.125 mg DAILY ORAL 04/23/17 09:00 05/23/17 08:59 04/26/17 09:37 Divalproex Sodium (Depakote ER) 250 mg EVERY 12 HOURS ORAL 04/23/17 09:00 05/23/17 08:59 04/26/17 09:40 Docusate Sodium (Colace) 100 mg TWICE A DAY ORAL 04/23/17 09:00 05/23/17 08:59 04/26/17 09:34 Lorazepam (Ativan) 0.5 mg Q6H PRN ORAL For Anxiety 04/23/17 13:30 04/30/17 13:29 Magnesium Hydroxide (Mom) 30 ml DAILY ORAL 04/23/17 09:00 05/23/17 08:59 04/26/17 09:41 Metronidazole 100 ml @ 100 mls/hr Q8HR IVPB 04/23/17 14:00 04/30/17 13:59 04/26/17 06:02 Multivitamins Therapeutic (Therapeutic Multivitamin) 1 ea DAILY ORAL 04/23/17 09:00 05/23/17 08:59 04/26/17 09:35 Pantoprazole (Protonix) 40 mg DAILY ORAL 04/23/17 09:00 05/23/17 08:59 04/26/17 09:36 Polyethylene Glycol (Miralax) 17 gm BEDTIME ORAL 04/22/17 21:00 05/22/17 20:59 04/24/17 21:31 Pramipexole (Mirapex) 0.25 mg TWICE A DAY ORAL 04/23/17 09:00 05/23/17 08:59 04/26/17 09:39 Sodium Phosphate (Fleet's Sodium Phosl Enema) 133 ml DAILY PRN RECTAL Constipation 04/22/17 21:45 05/22/17 21:44 Vitamin A/Vitamin D (A & D Oint) 1 applic EVERY 12 HOURS TOPIC 04/22/17 21:00 05/22/17 20:59 04/26/17 09:41 KAT GLYNN M.D. Apr 26, 2017 12:52
--- NOTE | 2017-04-26 14:38 | General Progress Note ---
Assessment/Plan Problem List: (1) UTI (urinary tract infection) ICD Codes: N39.0 - Urinary tract infection, site not specified SNOMED: 67209517 (2) Hypoalbuminemia ICD Codes: E88.09 - Other disorders of plasma-protein metabolism, not elsewhere classified SNOMED: 783131599 (3) Acute GI bleeding ICD Codes: K92.2 - Gastrointestinal hemorrhage, unspecified SNOMED: 19029944 (4) Anemia ICD Codes: D64.9 - Anemia, unspecified SNOMED: 935859720 (5) Parkinson disease ICD Codes: G20 - Parkinson's disease SNOMED: 09543541 (6) PVD (peripheral vascular disease) ICD Codes: I73.9 - Peripheral vascular disease, unspecified SNOMED: 883103862 Status: unchanged Assessment/Plan ot pt diet abx cbc bmp am dc plan if clear by heme Subjective Constitutional: Reports: weakness Allergies: Coded Allergies: No Known Allergies (Unverified , 04/27/15) All Systems: reviewed and negative except above Subjective sleepy calm in bed Objective Last 24 Hour Vital Signs Date Time Temp Pulse Resp B/P (MAP) Pulse Ox O2 Delivery O2 Flow Rate FiO2 04/26/17 12:00 97.3 71 18 96/61 100 Room Air 97.3 04/26/17 09:37 70 04/26/17 08:00 97.7 70 18 106/57 99 Room Air 97.7 04/26/17 04:23 Room Air 04/26/17 04:00 97.2 72 20 97/60 97 Room Air 97.2 04/26/17 00:00 97.0 70 21 98/64 99 Room Air 97.0 04/26/17 00:00 Room Air 04/25/17 20:00 96.6 78 19 93/65 99 Room Air 96.6 Intake and Output 04/25/17 04/26/17 19:00 07:00 Intake Total 515 ml 300 ml Output Total 200 ml 150 ml Balance 315 ml 150 ml Intake IV Total 515 ml 300 ml Output Urine Total 200 ml 150 ml # Bowel Movements 3 2 Laboratory Tests 04/26/17 07:35: White Blood Count 7.1, Red Blood Count 3.97L, Hemoglobin 9.7L, Hematocrit 30.7L , Mean Corpuscular Volume 77L, Mean Corpuscular Hemoglobin 24.5L, Mean Corpuscular Hemoglobin Concent 31.6L, Red Cell Distribution Width 29.8H, Platelet Count 88L, Mean Platelet Volume 8.2, Neutrophils (%) (Auto) , Lymphocytes (%) (Auto) , Monocytes (%) (Auto) , Eosinophils (%) (Auto) , Basophils (%) (Auto) , Differential Total Cells Counted 100, Neutrophils % ( Manual) 85H, Lymphocytes % (Manual) 9L, Monocytes % (Manual) 6, Eosinophils % ( Manual) 0, Basophils % (Manual) 0, Band Neutrophils 0, Platelet Estimate DecreasedL, Platelet Morphology Normal, Hypochromasia 2+, Anisocytosis 4+, Microcytosis 1+, Sodium Level 142, Potassium Level 3.4L, Chloride Level 107, Carbon Dioxide Level 23, Anion Gap 12, Blood Urea Nitrogen 16, Creatinine 0.8, Estimat Glomerular Filtration Rate , Glucose Level 78, Calcium Level 7.9L, Alpha Fetoprotein [Pending] Height (Feet): 5 Height (Inches): 4.00 Weight (Pounds): 130 General Appearance: lethargic, confused EENT: normal ENT inspection Neck: normal alignment Cardiovascular: normal peripheral pulses, normal rate, regular rhythm Respiratory/Chest: chest wall non-tender, lungs clear, normal breath sounds Abdomen: normal bowel sounds, non tender, soft Extremities: normal inspection Edema: no edema noted Arm (L), no edema noted Arm (R), no edema noted Leg (L), no edema noted Leg (R), no edema noted Pedal (L), no edema noted Pedal (R), no edema noted Generalized Neurologic: motor weakness Skin: normal pigmentation, warm/dry WILLA CHILDRESS Apr 26, 2017 14:38
--- NOTE | 2017-04-26 15:00 | Progress Note ---
DATE: 04/26/2017 SUBJECTIVE: This is a male patient, who is 77-year-old. The patient continued to have mild GI tract problems but he has lot of mood lability and agitation worsened by stress of his medical illness. MENTAL STATUS EXAMINATION: The patient is a 77-year-old male with psychomotor retardation. Mood is depressed. Affect is guarded and restricted. Thought process is disorganized and illogical. Denies any current suicidal or homicidal thoughts. Insight and judgment is poor. DIAGNOSIS: Major depression with psychotic features, rule out pseudodementia. PLAN: Plan for this patient treat him with Depakote ER 250 mg twice a day. Provided with 15 to 20 minutes of supportive therapy. Encouraged him to interact appropriately with staff. Chart reviewed and discussed with staff. Seen and assessed at bedside. Tia Lambert M.D. DR: ABLA JOB#: [id number] CC:
--- NOTE | 2017-04-26 15:52 | Physician Query ---
--------- THIS DOCUMENT IS A PERMANENT PART OF THE MEDICAL RECORD --------- PLEASE COMPLETE DOCUMENT BEFORE SIGNING Dear WILLA Corona Date: 04/26/17 Senior Ios Developer/CDS Name: Rachael Hsieh Senior Ios Developer/CDS Phone No.: [phone] Exercise your independent professional judgment when responding to the query. Questions asked do not imply a particular answer is desired or expected. We greatly appreciate your clarification on this issue. CLINICAL DOCUMENTATION STATES: Progress Note (04/24/17) " Hypoalbuminemia" "Acute GI bleeding, Anemia" Oncology/Hematology Note: Dr. Cat (04/25/17) "Advanced rectal/colon cancer" Nutrition Note (04/25/17) "Increased kcal/protein needs" "Altered nutrition" CLINICAL FINDINGS SHOW: Albumin: 1.8, 1.7 Please select the most appropriate option: [] Mild [] Moderate [] Protein/Calorie Malnutrition [] Protein Malnutrition >Serum albumin 2.8 to 3.4 g/dL or Pre-albumin 5 to 7 mg/dl (3) >Inadequate nutritional intake (1, 2, 3, 4) >NPO > 5 days >Weight loss: 5% in 1 month or 7.5% in 3 months or 10% in 6 months (1,3,4) >BMI 16 to 18.4 or Weight <90 of ideal body weight (1,2,3,4) [] Serum Malnutrition (Protein/Calorie) [] Severe Protein Malnutrition >Serum Albumin < 2.8 g/dL (1,2) >Lymphocytes < 1500/uL (2) >Inadequate nutritional intake3 , high stress e.g. major trauma, sepsis, pancreatitis, pedroza etc. >Decubitus ulcers (1,2) , skin breakdown(2), easy hair pluckability >Weight <80% standard for height (2) >Triceps skin fold <3 mm2 >Mid-arm muscle circumference <25 cm2 >Creatinine-height index <60% standard (2) _ [] Emancipated w/ Malnutrition [] Kw[place] (rare in [place]) [] Marasmus [] Other [] Unable to determine [] Not Applicable Condition Present on Admission: [] Yes [] No [ ] Unable to determine Please also document in your Progress Notes and/or Discharge Summary and indicate if the condition was present on admission. Dr. WILLA CHILDRESS Date/Time MTDD
[2017-04-26 16:00] VITALS: BP 96/60
--- NOTE | 2017-04-26 16:57 | GI Progress Note ---
Assessment/Plan Problems: (1) Rectal mass ICD Codes: K62.9 - Disease of anus and rectum, unspecified SNOMED: 774355809 (2) Abdominal pain ICD Codes: R10.9 - Unspecified abdominal pain SNOMED: 52771530 (3) Anemia ICD Codes: D64.9 - Anemia, unspecified SNOMED: 657695520 Status: stable Status Narrative Discussed with Dr. Tovar. Assessment/Plan s/p SUMMARY OF FINDINGS: 1. Gastritis status post status post biopsy. 2. Incomplete colonoscopy only flexible was obtained given poor prep. 3. Large rectal mass, see above for details. RECOMMENDATIONS: 1. CT of the abdomen and pelvis to evaluate for metastasis. 2. Followup biopsy results. 3. Oncology evaluation. ST evaluation, diet per mental hygiene consultant fu labs The patient was seen and examined at bedside and all new and available data was reviewed in the patients chart. I agree with the above findings, impression and plan. (Patient seen earlier today. Signature stamp does not reflect patient encounter time.). - Sudhakar Tovar MD Subjective Subjective limited Objective Last 24 Hour Vital Signs Date Time Temp Pulse Resp B/P (MAP) Pulse Ox O2 Delivery O2 Flow Rate FiO2 04/26/17 16:00 96.6 82 17 96/60 99 Room Air 96.6 04/26/17 12:00 97.3 71 18 96/61 100 Room Air 97.3 04/26/17 09:37 70 04/26/17 08:00 97.7 70 18 106/57 99 Room Air 97.7 04/26/17 04:23 Room Air 04/26/17 04:00 97.2 72 20 97/60 97 Room Air 97.2 04/26/17 00:00 97.0 70 21 98/64 99 Room Air 97.0 04/26/17 00:00 Room Air 04/25/17 20:00 96.6 78 19 93/65 99 Room Air 96.6 Intake and Output 04/25/17 04/26/17 19:00 07:00 Intake Total 515 ml 300 ml Output Total 200 ml 150 ml Balance 315 ml 150 ml Intake IV Total 515 ml 300 ml Output Urine Total 200 ml 150 ml # Bowel Movements 3 2 Laboratory Tests Test 04/26/17 07:35 White Blood Count 7.1 K/UL (4.8-10.8) Red Blood Count 3.97 M/UL (4.70-6.10) L Hemoglobin 9.7 G/DL (14.2-18.0) L Hematocrit 30.7 % (42.0-52.0) L Mean Corpuscular Volume 77 FL (80-99) L Mean Corpuscular Hemoglobin 24.5 PG (27.0-31.0) L Mean Corpuscular Hemoglobin Concent 31.6 G/DL (32.0-36.0) L Red Cell Distribution Width 29.8 % (11.6-14.8) H Platelet Count 88 K/UL (150-450) L Mean Platelet Volume 8.2 FL (6.5-10.1) Neutrophils (%) (Auto) % (45.0-75.0) Lymphocytes (%) (Auto) % (20.0-45.0) Monocytes (%) (Auto) % (1.0-10.0) Eosinophils (%) (Auto) % (0.0-3.0) Basophils (%) (Auto) % (0.0-2.0) Differential Total Cells Counted 100 Neutrophils % (Manual) 85 % (45-75) H Lymphocytes % (Manual) 9 % (20-45) L Monocytes % (Manual) 6 % (1-10) Eosinophils % (Manual) 0 % (0-3) Basophils % (Manual) 0 % (0-2) Band Neutrophils 0 % (0-8) Platelet Estimate Decreased L Platelet Morphology Normal Hypochromasia 2+ Anisocytosis 4+ Microcytosis 1+ Sodium Level 142 MMOL/L (136-145) Potassium Level 3.4 MMOL/L (3.5-5.1) L Chloride Level 107 MMOL/L (98-107) Carbon Dioxide Level 23 MMOL/L (21-32) Anion Gap 12 mmol/L (5-15) Blood Urea Nitrogen 16 mg/dL (7-18) Creatinine 0.8 MG/DL (0.55-1.30) Estimat Glomerular Filtration Rate mL/min (>60) Glucose Level 78 MG/DL (74-106) Calcium Level 7.9 MG/DL (8.5-10.1) L Alpha Fetoprotein Pending Height (Feet): 5 Height (Inches): 4.00 Weight (Pounds): 130 General Appearance: no apparent distress, alert Cardiovascular: normal rate Respiratory/Chest: normal breath sounds, no respiratory distress Abdominal Exam: soft Genitourinary/Rectal: normal rectal exam Extremities: normal range of motion Objective confused refused ST evaluation Tata Sheppard N.P. Apr 26, 2017 16:57 DEVIN TOVAR May 03, 2017 13:33
[2017-04-26] MEDS ORDERED: Tubing IV Secondary IV ONE (17:52)
[2017-04-26] MEDS ORDERED: D5 1/2NS 1000ml IV ONE (17:57)
[2017-04-26] MEDS ORDERED: NS 275ml ONE (17:57)
[2017-04-26] MEDS: D5 1/2NS w/KCl 40meq 1000ml 1,000 ML IV SCH (18:37)
[2017-04-26 19:50] VITALS: BP 95/57
--- NOTE | 2017-04-26 20:01 | General Progress Note ---
Assessment/Plan Assessment/Plan ASSESSMENT AND RECOMMENDATIONS: 1.Metastatic versus locally advanced rectal adenocarcinoma, pathology reported reviewed. Imaging has been reviewed. Recommend this patient to obtain a PET scan as an outpatient. In addition, the patient may need surgical staging and neoadjuvant chemotherapy. We will need to discuss with surgery once the patient is discharged. May benefit from chemotherapy and radiation upfront for rectal tumor. ---> tumor markers pending ---> okay for discharge, though if not discharged have ordered mri liver as liver appears diffusely enchaning, concerning for malignancy ===> outpatient pet 2. Anemia due to underlying gastrointestinal bleed. 3. Anemia due to underlying iron deficiency. Begin the patient on ferrous sulfate. 4. peripheral vascular disease. 5. Transaminitis. Closely monitor. 6. FTT I appreciate the consultation. Subjective Constitutional: Reports: no symptoms HEENT: Reports: no symptoms Cardiovascular: Reports: no symptoms Respiratory: Reports: no symptoms Gastrointestinal/Abdominal: Reports: no symptoms Genitourinary: Reports: no symptoms Neurologic/Psychiatric: Reports: anxiety Hematologic/Lymphatic: Reports: anemia Allergies: Coded Allergies: No Known Allergies (Unverified , 04/27/15) Subjective no fevers or chills reported, fatigued Objective Last 24 Hour Vital Signs Date Time Temp Pulse Resp B/P (MAP) Pulse Ox O2 Delivery O2 Flow Rate FiO2 04/26/17 19:50 97.2 71 18 95/57 98 97.2 04/26/17 16:00 96.6 82 17 96/60 99 Room Air 96.6 04/26/17 12:00 97.3 71 18 96/61 100 Room Air 97.3 04/26/17 09:37 70 04/26/17 08:00 97.7 70 18 106/57 99 Room Air 97.7 04/26/17 04:23 Room Air 04/26/17 04:00 97.2 72 20 97/60 97 Room Air 97.2 04/26/17 00:00 97.0 70 21 98/64 99 Room Air 97.0 04/26/17 00:00 Room Air 04/25/17 20:00 96.6 78 19 93/65 99 Room Air 96.6 Intake and Output 04/25/17 04/26/17 19:00 07:00 Intake Total 515 ml 300 ml Output Total 200 ml 150 ml Balance 315 ml 150 ml Intake IV Total 515 ml 300 ml Output Urine Total 200 ml 150 ml # Bowel Movements 3 2 Laboratory Tests 04/26/17 07:35: White Blood Count 7.1, Red Blood Count 3.97L, Hemoglobin 9.7L, Hematocrit 30.7L , Mean Corpuscular Volume 77L, Mean Corpuscular Hemoglobin 24.5L, Mean Corpuscular Hemoglobin Concent 31.6L, Red Cell Distribution Width 29.8H, Platelet Count 88L, Mean Platelet Volume 8.2, Neutrophils (%) (Auto) , Lymphocytes (%) (Auto) , Monocytes (%) (Auto) , Eosinophils (%) (Auto) , Basophils (%) (Auto) , Differential Total Cells Counted 100, Neutrophils % ( Manual) 85H, Lymphocytes % (Manual) 9L, Monocytes % (Manual) 6, Eosinophils % ( Manual) 0, Basophils % (Manual) 0, Band Neutrophils 0, Platelet Estimate DecreasedL, Platelet Morphology Normal, Hypochromasia 2+, Anisocytosis 4+, Microcytosis 1+, Sodium Level 142, Potassium Level 3.4L, Chloride Level 107, Carbon Dioxide Level 23, Anion Gap 12, Blood Urea Nitrogen 16, Creatinine 0.8, Estimat Glomerular Filtration Rate , Glucose Level 78, Calcium Level 7.9L, Alpha Fetoprotein [Pending] Height (Feet): 5 Height (Inches): 4.00 Weight (Pounds): 130 General Appearance: no apparent distress EENT: normal ENT inspection Neck: supple Cardiovascular: regularly irregular Respiratory/Chest: lungs clear Abdomen: no organomegaly Sarabjit Cat Apr 26, 2017 20:01
[2017-04-26] MEDS: Miralax 17gm pkt ORAL SCH (20:35)
[2017-04-27] VITALS: BP 97/59
[2017-04-27 04:32] VITALS: BP 124/75
[2017-04-27 07:25] LABS: HEMATOCRIT 29.7 % (42.0-52.0); HEMOGLOBIN 9.5 G/DL (14.2-18.0); MEAN CORPUSCULAR VOLUME 77 FL (80-99); PLATELET COUNT 83 K/UL (150-450); RED BLOOD COUNT 3.84 M/UL (4.70-6.10); RED CELL DISTRIBUTION WIDTH 29.9 % (11.6-14.8); WHITE BLOOD COUNT 7.7 K/UL (4.8-10.8)
--- NOTE | 2017-04-27 07:57 | General Progress Note ---
Assessment/Plan Problem List: (1) UTI (urinary tract infection) ICD Codes: N39.0 - Urinary tract infection, site not specified SNOMED: 38553369 (2) Hypoalbuminemia ICD Codes: E88.09 - Other disorders of plasma-protein metabolism, not elsewhere classified SNOMED: 299443360 (3) Acute GI bleeding ICD Codes: K92.2 - Gastrointestinal hemorrhage, unspecified SNOMED: 52160242 (4) Anemia ICD Codes: D64.9 - Anemia, unspecified SNOMED: 377475886 (5) Parkinson disease ICD Codes: G20 - Parkinson's disease SNOMED: 18129785 (6) PVD (peripheral vascular disease) ICD Codes: I73.9 - Peripheral vascular disease, unspecified SNOMED: 649672176 (7) Rectal cancer ICD Codes: C20 - Malignant neoplasm of rectum SNOMED: 346508188 Status: unchanged Assessment/Plan ot pt diet abx dc if clear by heme Subjective Constitutional: Reports: weakness Allergies: Coded Allergies: No Known Allergies (Unverified , 04/27/15) All Systems: reviewed and negative except above Subjective sleepy calm in bed Objective Last 24 Hour Vital Signs Date Time Temp Pulse Resp B/P (MAP) Pulse Ox O2 Delivery O2 Flow Rate FiO2 04/27/17 04:32 97.2 73 18 124/75 98 97.2 04/27/17 00:00 97.0 70 18 97/59 99 97.0 04/26/17 19:50 97.2 71 18 95/57 98 97.2 04/26/17 16:00 96.6 82 17 96/60 99 Room Air 96.6 04/26/17 12:00 97.3 71 18 96/61 100 Room Air 97.3 04/26/17 09:37 70 04/26/17 08:00 97.7 70 18 106/57 99 Room Air 97.7 Intake and Output 04/26/17 04/27/17 19:00 07:00 Intake Total 60 ml 540 ml Output Total 280 ml 200 ml Balance -220 ml 340 ml Intake IV Total 60 ml 540 ml Output Urine Total 280 ml 200 ml # Bowel Movements 3 3 Laboratory Tests 04/27/17 06:40: White Blood Count 7.7, Red Blood Count 3.84L, Hemoglobin 9.5L, Hematocrit 29.7L , Mean Corpuscular Volume 77L, Mean Corpuscular Hemoglobin 24.7L, Mean Corpuscular Hemoglobin Concent 31.9L, Red Cell Distribution Width 29.9H, Platelet Count 83L, Mean Platelet Volume 7.7, Neutrophils (%) (Auto) , Lymphocytes (%) (Auto) , Monocytes (%) (Auto) , Eosinophils (%) (Auto) , Basophils (%) (Auto) , Neutrophils % (Manual) [Pending], Lymphocytes % (Manual) [Pending], Platelet Estimate [Pending], Platelet Morphology [Pending], Sodium Level [Pending], Potassium Level [Pending], Chloride Level [Pending], Carbon Dioxide Level [Pending], Blood Urea Nitrogen [Pending], Creatinine [Pending], Estimat Glomerular Filtration Rate [Pending], Glucose Level [Pending], Calcium Level [Pending] Height (Feet): 5 Height (Inches): 4.00 Weight (Pounds): 130 General Appearance: lethargic EENT: normal ENT inspection Neck: normal alignment Cardiovascular: normal peripheral pulses, normal rate, regular rhythm Respiratory/Chest: chest wall non-tender, lungs clear, normal breath sounds Abdomen: normal bowel sounds, non tender, soft Extremities: normal inspection Edema: no edema noted Arm (L), no edema noted Arm (R), no edema noted Leg (L), no edema noted Leg (R), no edema noted Pedal (L), no edema noted Pedal (R), no edema noted Generalized Neurologic: motor weakness Skin: normal pigmentation, warm/dry WILLA CHILDRESS Apr 27, 2017 07:57
[2017-04-27 08:00] VITALS: BP 101/59
[2017-04-27 08:38] LABS: ANION GAP 11 mmol/L (5-15); BLOOD UREA NITROGEN 18 mg/dL (7-18); CALCIUM 7.7 MG/DL (8.5-10.1); CARBON DIOXIDE 21 MMOL/L (21-32); CHLORIDE 109 MMOL/L (98-107); CREATININE 0.9 MG/DL (0.55-1.30); POTASSIUM 3.5 MMOL/L (3.5-5.1); SODIUM 141 MMOL/L (136-145)
[2017-04-27] MEDS: Vitamin A&D Oint 2oz Tube TOPIC SCH (09:00)
[2017-04-27] MEDS: D5 1/2NS w/KCl 40meq 1000ml 1,000 ML IV SCH (10:10)
[2017-04-27] MEDS: Pramipexole 0.5mg tab ORAL SCH (10:21)
[2017-04-27] MEDS: Digoxin 0.125mg tab ORAL SCH (10:22)
[2017-04-27] MEDS: Depakote ER 250mg tab ORAL SCH (10:22)
[2017-04-27] MEDS: Multivitamin w/Minerals tab ORAL SCH (10:23)
[2017-04-27] MEDS: Levodopa/Carbidopa 25/100 tab ORAL SCH ×2 (10:23→13:00)
[2017-04-27] MEDS: Docusate 100mg cap ORAL SCH (10:23)
[2017-04-27] MEDS: Milk of Magnesia 30ml Ud ORAL SCH (10:24)
[2017-04-27] MEDS: cefTRIAXone 2 GM in NS 55 ML IVPB SCH (11:30)
--- NOTE | 2017-04-27 11:42 | Infectious Diseases Prog Note ---
Assessment/Plan Assessment/Plan ASSESSMENT: The patient is a 77-year-old male with: Transaminitis / Elevated alkaline phosphatase 2nd to mets CT: Enlarged liver. Diffuse heterogeneity is concerning for diffuse involvement with Metastases Ultrasound of the abdomen: No biliary obst. or cholecystitis Hep panel : neg Afebrile Normal WBC Lung nodule 3 mm nodule in the inferior left lower lobe lower gastrointestinal bleed Colonoscopy : rectal cancer CT: wall thickening/mass at the rectosigmoid junction Anemia. Parkinson disease. Peripheral vascular disease. PLAN: DC Rocephiamparo and Flagyl d# 5 / 5 Monitor CBC. Monitor BMP. Monitor cultures (blood) hem following Subjective Allergies: Coded Allergies: No Known Allergies (Unverified , 04/27/15) Subjective afebrile Objective Vital Signs Last 24 Hour Vital Signs Date Time Temp Pulse Resp B/P (MAP) Pulse Ox O2 Delivery O2 Flow Rate FiO2 04/27/17 10:22 69 04/27/17 08:00 97.5 69 19 101/59 94 97.5 04/27/17 04:32 97.2 73 18 124/75 98 97.2 04/27/17 00:00 97.0 70 18 97/59 99 97.0 04/26/17 19:50 97.2 71 18 95/57 98 97.2 04/26/17 16:00 96.6 82 17 96/60 99 Room Air 96.6 04/26/17 12:00 97.3 71 18 96/61 100 Room Air 97.3 Height (Feet): 5 Height (Inches): 4.00 Weight (Pounds): 130 HEENT: anicteric Respiratory/Chest: no respiratory distress Cardiovascular: no gallop/murmur Abdomen: no organomegaly Laboratory Tests Test 04/27/17 06:40 White Blood Count 7.7 K/UL (4.8-10.8) Red Blood Count 3.84 M/UL (4.70-6.10) L Hemoglobin 9.5 G/DL (14.2-18.0) L Hematocrit 29.7 % (42.0-52.0) L Mean Corpuscular Volume 77 FL (80-99) L Mean Corpuscular Hemoglobin 24.7 PG (27.0-31.0) L Mean Corpuscular Hemoglobin Concent 31.9 G/DL (32.0-36.0) L Red Cell Distribution Width 29.9 % (11.6-14.8) H Platelet Count 83 K/UL (150-450) L Mean Platelet Volume 7.7 FL (6.5-10.1) Neutrophils (%) (Auto) % (45.0-75.0) Lymphocytes (%) (Auto) % (20.0-45.0) Monocytes (%) (Auto) % (1.0-10.0) Eosinophils (%) (Auto) % (0.0-3.0) Basophils (%) (Auto) % (0.0-2.0) Differential Total Cells Counted 100 Neutrophils % (Manual) 84 % (45-75) H Lymphocytes % (Manual) 10 % (20-45) L Monocytes % (Manual) 6 % (1-10) Eosinophils % (Manual) 0 % (0-3) Basophils % (Manual) 0 % (0-2) Band Neutrophils 0 % (0-8) Platelet Estimate Decreased L Platelet Morphology Normal Hypochromasia 2+ Anisocytosis 4+ Microcytosis 1+ Sodium Level 141 MMOL/L (136-145) Potassium Level 3.5 MMOL/L (3.5-5.1) Chloride Level 109 MMOL/L (98-107) H Carbon Dioxide Level 21 MMOL/L (21-32) Anion Gap 11 mmol/L (5-15) Blood Urea Nitrogen 18 mg/dL (7-18) Creatinine 0.9 MG/DL (0.55-1.30) Estimat Glomerular Filtration Rate mL/min (>60) Glucose Level 86 MG/DL (74-106) Calcium Level 7.7 MG/DL (8.5-10.1) L Current Medications Medications (Trade) Dose Ordered Sig/Judson Route PRN Reason Start Time Stop Time Status Last Admin Dose Admin Acetaminophen (Tylenol) 325 mg Q6H PRN ORAL for mild pain 04/22/17 21:45 05/22/17 21:44 Acetaminophen/ Hydrocodone Bitart ([place] 5/325) 1 tab Q6H PRN ORAL for moderate pain 04/22/17 21:45 04/29/17 21:44 Al Hydroxide/Mg Hydroxide (Mylanta) 30 ml PRN ORAL 04/22/17 22:45 05/22/17 22:44 Carbidopa/Levodopa (Sinemet 25/100) 1 tab THREE TIMES A DAY ORAL 04/23/17 09:00 05/23/17 08:59 04/27/17 10:23 Ceftriaxone Sodium 2 gm/ Sodium Chloride 55 ml @ 110 mls/hr Q24H IVPB 04/23/17 11:00 04/30/17 10:59 04/26/17 11:42 Dextrose/ Electrolytes 1,000 ml @ 60 mls/hr [id number] IV 04/26/17 17:30 05/26/17 17:29 04/26/17 18:37 Digoxin (Lanoxin) 0.125 mg DAILY ORAL 04/23/17 09:00 05/23/17 08:59 04/27/17 10:22 Divalproex Sodium (Depakote ER) 250 mg EVERY 12 HOURS ORAL 04/23/17 09:00 05/23/17 08:59 04/27/17 10:22 Docusate Sodium (Colace) 100 mg TWICE A DAY ORAL 04/23/17 09:00 05/23/17 08:59 04/27/17 10:23 Lorazepam (Ativan) 0.5 mg Q6H PRN ORAL For Anxiety 04/23/17 13:30 04/30/17 13:29 Magnesium Hydroxide (Mom) 30 ml DAILY ORAL 04/23/17 09:00 05/23/17 08:59 04/27/17 10:24 Metronidazole 100 ml @ 100 mls/hr Q8HR IVPB 04/23/17 14:00 04/30/17 13:59 04/27/17 05:03 Multivitamins Therapeutic (Therapeutic Multivitamin) 1 ea DAILY ORAL 04/23/17 09:00 05/23/17 08:59 04/27/17 10:23 Pantoprazole (Protonix) 40 mg DAILY ORAL 04/23/17 09:00 05/23/17 08:59 04/27/17 10:20 Polyethylene Glycol (Miralax) 17 gm BEDTIME ORAL 04/22/17 21:00 05/22/17 20:59 04/26/17 20:35 Pramipexole (Mirapex) 0.25 mg TWICE A DAY ORAL 04/23/17 09:00 05/23/17 08:59 04/27/17 10:21 Sodium Phosphate (Fleet's Sodium Phosl Enema) 133 ml DAILY PRN RECTAL Constipation 04/22/17 21:45 05/22/17 21:44 Vitamin A/Vitamin D (A & D Oint) 1 applic EVERY 12 HOURS TOPIC 04/22/17 21:00 05/22/17 20:59 04/27/17 09:00 KAT GLYNN M.D. Apr 27, 2017 11:41
[2017-04-27 12:00] VITALS: BP 103/71
--- NOTE | 2017-04-27 13:06 | GI Progress Note ---
Assessment/Plan Problems: (1) Rectal mass ICD Codes: K62.9 - Disease of anus and rectum, unspecified SNOMED: 861462882 (2) Abdominal pain ICD Codes: R10.9 - Unspecified abdominal pain SNOMED: 82072163 (3) Anemia ICD Codes: D64.9 - Anemia, unspecified SNOMED: 845355836 (4) Severe malnutrition ICD Codes: E43 - Unspecified severe protein-calorie malnutrition SNOMED: 78364076 (5) Acute GI bleeding ICD Codes: K92.2 - Gastrointestinal hemorrhage, unspecified SNOMED: 74270901 Status: unchanged Status Narrative Discussed with Dr. Tovar. Assessment/Plan s/p SUMMARY OF FINDINGS: 1. Gastritis status post status post biopsy. 2. Incomplete colonoscopy only flexible was obtained given poor prep. 3. Large rectal mass, see above for details. bioethics consult reviewed >> POLST with no artificial feeding >> will recommend hospice RECOMMENDATIONS: okay for DC per GI standpoint fu onc recs OT evaluation reviewed CT of the abdomen and pelvis to evaluate for metastasis. followup biopsy results. ST evaluation, diet per wine consultant fu labs Subjective Subjective limited Objective Last 24 Hour Vital Signs Date Time Temp Pulse Resp B/P (MAP) Pulse Ox O2 Delivery O2 Flow Rate FiO2 04/27/17 12:00 97.7 70 18 103/71 100 97.7 04/27/17 10:22 69 04/27/17 08:00 97.5 69 19 101/59 94 97.5 04/27/17 04:32 97.2 73 18 124/75 98 97.2 04/27/17 00:00 97.0 70 18 97/59 99 97.0 04/26/17 19:50 97.2 71 18 95/57 98 97.2 04/26/17 16:00 96.6 82 17 96/60 99 Room Air 96.6 Intake and Output 04/26/17 04/27/17 19:00 07:00 Intake Total 60 ml 540 ml Output Total 280 ml 200 ml Balance -220 ml 340 ml Intake IV Total 60 ml 540 ml Output Urine Total 280 ml 200 ml # Bowel Movements 3 3 Laboratory Tests Test 04/27/17 06:40 White Blood Count 7.7 K/UL (4.8-10.8) Red Blood Count 3.84 M/UL (4.70-6.10) L Hemoglobin 9.5 G/DL (14.2-18.0) L Hematocrit 29.7 % (42.0-52.0) L Mean Corpuscular Volume 77 FL (80-99) L Mean Corpuscular Hemoglobin 24.7 PG (27.0-31.0) L Mean Corpuscular Hemoglobin Concent 31.9 G/DL (32.0-36.0) L Red Cell Distribution Width 29.9 % (11.6-14.8) H Platelet Count 83 K/UL (150-450) L Mean Platelet Volume 7.7 FL (6.5-10.1) Neutrophils (%) (Auto) % (45.0-75.0) Lymphocytes (%) (Auto) % (20.0-45.0) Monocytes (%) (Auto) % (1.0-10.0) Eosinophils (%) (Auto) % (0.0-3.0) Basophils (%) (Auto) % (0.0-2.0) Differential Total Cells Counted 100 Neutrophils % (Manual) 84 % (45-75) H Lymphocytes % (Manual) 10 % (20-45) L Monocytes % (Manual) 6 % (1-10) Eosinophils % (Manual) 0 % (0-3) Basophils % (Manual) 0 % (0-2) Band Neutrophils 0 % (0-8) Platelet Estimate Decreased L Platelet Morphology Normal Hypochromasia 2+ Anisocytosis 4+ Microcytosis 1+ Sodium Level 141 MMOL/L (136-145) Potassium Level 3.5 MMOL/L (3.5-5.1) Chloride Level 109 MMOL/L (98-107) H Carbon Dioxide Level 21 MMOL/L (21-32) Anion Gap 11 mmol/L (5-15) Blood Urea Nitrogen 18 mg/dL (7-18) Creatinine 0.9 MG/DL (0.55-1.30) Estimat Glomerular Filtration Rate mL/min (>60) Glucose Level 86 MG/DL (74-106) Calcium Level 7.7 MG/DL (8.5-10.1) L Height (Feet): 5 Height (Inches): 4.00 Weight (Pounds): 130 General Appearance: WD/WN, no apparent distress, alert, thin Cardiovascular: normal rate Respiratory/Chest: normal breath sounds, no respiratory distress Abdominal Exam: normal bowel sounds, non tender, soft Objective confused refused ST evaluation Tata Sheppard N.P. Apr 27, 2017 13:06
[2017-04-27] MEDS ORDERED: D5 1/2NS 1000ml IV ONE (15:29)
[2017-04-27] MEDS ORDERED: NS 500ML ONE (15:29)
[2017-04-27] MEDS ORDERED: Tubing IV Secondary IV ONE (15:29)
--- NOTE | 2017-04-28 02:20 | General Progress Note ---
Assessment/Plan Assessment/Plan ASSESSMENT AND RECOMMENDATIONS: 1.Metastatic versus locally advanced rectal adenocarcinoma, pathology reported reviewed. Imaging has been reviewed. Recommend this patient to obtain a PET scan as an outpatient. In addition, the patient may need surgical staging and neoadjuvant chemotherapy. We will need to discuss with surgery once the patient is discharged. May benefit from chemotherapy and radiation upfront for rectal tumor. ---> tumor markers pending ---> okay for discharge, though if not discharged have ordered mri liver as liver appears diffusely enchaning, concerning for malignancy ===> outpatient pet 2. Anemia due to underlying gastrointestinal bleed. --> Monitor and trend cbc --> Transfuse if hgb <7 3. Anemia due to underlying iron deficiency. --> Begin the patient on ferrous sulfate. 4. peripheral vascular disease. 5. Transaminitis. Closely monitor. 6. FTT I appreciate the consultation. Subjective Date patient seen: Apr 27, 2017 Constitutional: Denies: no symptoms, chills, diaphoresis, fever, malaise, weakness, other HEENT: Denies: no symptoms, eye pain, blurred vision, tearing, double vision, ear pain, ear discharge, nose pain, nose congestion, throat pain, throat swelling, mouth pain, mouth swelling, other Cardiovascular: Denies: no symptoms, chest pain, edema, irregular heart rate, lightheadedness, palpitations, syncope, other Respiratory: Denies: no symptoms, cough, orthopnea, shortness of breath, SOB with excertion, SOB at rest, sputum, stridor, wheezing, other Genitourinary: Denies: no symptoms, burning, discharge, frequency, flank pain, hematuria, incontinence, pain, urgency, other Neurologic/Psychiatric: Denies: no symptoms, anxiety, depressed, emotional problems, headache, numbness, paresthesia, pre-existing deficit, seizure, tingling, tremors, weakness, other Allergies: Coded Allergies: No Known Allergies (Unverified , 04/27/15) Subjective No fever or chills. No active bleeding. Objective Last 24 Hour Vital Signs Date Time Temp Pulse Resp B/P (MAP) Pulse Ox O2 Delivery O2 Flow Rate FiO2 04/27/17 12:00 97.7 70 18 103/71 100 97.7 04/27/17 10:22 69 04/27/17 08:00 97.5 69 19 101/59 94 97.5 04/27/17 04:32 97.2 73 18 124/75 98 97.2 Intake and Output 04/27/17 04/28/17 19:00 07:00 # Bowel Movements 1 Laboratory Tests 04/27/17 06:40: White Blood Count 7.7, Red Blood Count 3.84L, Hemoglobin 9.5L, Hematocrit 29.7L , Mean Corpuscular Volume 77L, Mean Corpuscular Hemoglobin 24.7L, Mean Corpuscular Hemoglobin Concent 31.9L, Red Cell Distribution Width 29.9H, Platelet Count 83L, Mean Platelet Volume 7.7, Neutrophils (%) (Auto) , Lymphocytes (%) (Auto) , Monocytes (%) (Auto) , Eosinophils (%) (Auto) , Basophils (%) (Auto) , Differential Total Cells Counted 100, Neutrophils % ( Manual) 84H, Lymphocytes % (Manual) 10L, Monocytes % (Manual) 6, Eosinophils % ( Manual) 0, Basophils % (Manual) 0, Band Neutrophils 0, Platelet Estimate DecreasedL, Platelet Morphology Normal, Hypochromasia 2+, Anisocytosis 4+, Microcytosis 1+, Sodium Level 141, Potassium Level 3.5, Chloride Level 109H, Carbon Dioxide Level 21, Anion Gap 11, Blood Urea Nitrogen 18, Creatinine 0.9, Estimat Glomerular Filtration Rate , Glucose Level 86, Calcium Level 7.7L Height (Feet): 5 Height (Inches): 4.00 Weight (Pounds): 130 Sarabjit Cat Apr 28, 2017 02:20
--- NOTE | 2017-04-28 14:25 | Discharge Summary ---
Discharge Summary Hospital Course Date of Admission Apr 22, 2017 at 15:07 Date of Discharge Apr 27, 2017 at 15:30 Admitting Diagnosis gastrointestinal bleed HPI Andre Cabello is a 77 year old male who was admitted on Apr 22, 2017 at 15: 07 for Gastrointestinal Bleed Hospital Course [id number] Discharge Discharge Disposition Patient was discharged to SNF Discharge Diagnoses: Sophie Selby NP Apr 28, 2017 14:25
--- NOTE | 2017-04-28 22:30 | Discharge Summary 2 SIG ---
DATE OF ADMISSION: 04/22/2017 DATE OF DISCHARGE: 04/27/2017 CONSULTANTS: 1. Sarabjit Cat M.D. 2. Ton Tovar M.D. 3. Juanito Gonzalez M.D. 4. Tia Lambert M.D. 5. Kings Nava PsyD. BRIEF HOSPITAL COURSE: The patient is a 77-year-old male from [facility], presented to ED due to altered mental status and gastrointestinal bleed. The patient has history of anemia and has received blood transfusion in the past. He came in with a POLST that states Do Not Resuscitate. He has medical history significant for diabetes. 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 He was noted to have worsening weakness. On evaluation at ED, hemoglobin was 10, hematocrit was 35, and platelets was 172. He had an EKG that showed normal sinus rhythm with inverted T-waves in leads V1 to V5. Chest x-ray showed no acute disease. He was admitted for evaluation of gastrointestinal bleed and altered mental status and possible urinary tract infection as UA showed +1 leukocyte esterase. He was started on Rocephin and Flagyl. He had coffee-ground emesis at the halfway. He had elevated AST of 290 and alkaline phosphatase of 597. He had an abdominal ultrasound that showed hepatomegaly suggestive of infiltrative disease based on markedly heterogenous and nodular appearance. On 04/25/2017, he underwent esophagogastroduodenoscopy and colonoscopy. Findings showed gastritis and large rectal mass. It was an incomplete colonoscopy, only flexible was obtained, given poor prep. He came in with unstageable pressure ulcers on the thoracic mid spine and left lateral knee. He had a full-thickness scar on the sacrococcygeal area and left ischial tuberosity. He was given local wound care with frequent turning and offloading. He was diagnosed with major depression with psychotic features and was given Depakote ER 750 mg every 12 hours and Ativan 0.5 mg q.6 hours as needed. CAT scan of the abdomen showed wall thickening, mass at the rectosigmoid junction. Pathology showed invasive adenocarcinoma. The patient had liver transaminitis and elevated alkaline phosphatase, probably secondary to metastasis. Hepatitis panel was negative. Blood cultures and urine cultures did not isolate any growth. Antibiotics were discontinued. He was recommended need to obtain a PET scan as an outpatient and may need surgical staging and neoadjuvant chemotherapy. He was eventually discharged back to halfway. Recommend Bioethics/hospice. FINAL DIAGNOSES: 1. Metastatic rectal adenocarcinoma. 2. Anemia due to iron deficiency. 3. Anemia due to gastrointestinal bleed. 4. Transaminitis, possibly secondary to mets. 5. Hypoalbuminemia. 6. Parkinson disease. 7. Peripheral vascular disease. 8. Severe protein-calorie malnutrition. 9. Gastritis. 10. Lung nodule in the inferior left lower lobe. 11. Unstageable pressure ulcer on the mid thoracic spine and left lateral knee, present on admission. DISPOSITION: The patient was discharged back to [facility]. DISCHARGE INSTRUCTIONS: Follow up with oncologist as outpatient for needed PET and staging of adenocarcinoma. Raad Sun D.O. I have been assigned to dictate discharge summary on this account and I was not involved in the patient's management. Sophie Selby N.P. DR: KAMI JOB#: [id number] CC: EAN
--- NOTE | 2017-05-04 16:55 | Cardiology Report ---
APPROVED REPORT EKG Measurement Heart [id number] NE 182P-4 [id number] Atrial Pacemaker Low voltage QRS Abnormal ECG
== END 2017-04-27 15:30 | DRG 374 ==
LOC: EDBD 14:17 → EMR 15:00 → 4W 15:07 → EDBEDREQ 15:44 → 4W 21:05
PROC: 0DBP8ZX Excision of Rectum, Via Natural or Artificial Opening Endoscopic, Diagnostic (ICD-10-PCS; principal; 2017-04-25 11:49)
PROC: 0DB78ZX Excision of Stomach, Pylorus, Via Natural or Artificial Opening Endoscopic, Diagnostic (ICD-10-PCS; principal; 2017-04-25 11:49)
DX: C20 Malignant neoplasm of rectum (principal); E43 Unspecified severe protein-calorie malnutrition; N39.0 Urinary tract infection, site not specified; F32.3 Major depressive disorder, single episode, severe with psychotic features; L89.100 Pressure ulcer of unspecified part of back, unstageable; G20 Parkinson's disease; L89.890 Pressure ulcer of other site, unstageable; F02.80 Dementia in other diseases classified elsewhere, unspecified severity, without behavioral disturbance, psychotic disturbance, mood disturbance, and anxiety; E11.9 Type 2 diabetes mellitus without complications; K29.40 Chronic atrophic gastritis without bleeding; R91.1 Solitary pulmonary nodule; D50.0 Iron deficiency anemia secondary to blood loss (chronic); I10 Essential (primary) hypertension; I73.9 Peripheral vascular disease, unspecified; K59.00 Constipation, unspecified; K80.20 Calculus of gallbladder without cholecystitis without obstruction; K83.9 Disease of biliary tract, unspecified; Z68.22 Body mass index [BMI] 22.0-22.9, adult; Z95.0 Presence of cardiac pacemaker; F41.9 Anxiety disorder, unspecified; Z89.511 Acquired absence of right leg below knee
CPT/HCPCS: 36415; 71045; 71250; 74018; 74176; 76700; 80048; 80053; 81003; 82105; 82150; 82248; 82270; 82378; 83540; 83550; 83690; 84100; 84484; 85007; 85025; 85610; 85730; 86705; 86709; 86803; 86850; 86900; 86901; 87040; 87081; 87086; 87340; 93005; 94003; 94150; 99285